=== PATIENT | male | born 1955 | race Caucasian/White ===

== ENCOUNTER 2016-11-27 00:46 | Emergency (ER) | payer BC ==
[~2016-11-27] VITALS: Ht 180.3 cm; Wt 102.5 kg
[~2016-11-27 00:46] MED LIST: AMLO5TAB4 PO; ASPI-1063 PO; CALC667C PO; CARV25TA55 PO; CAT.1 PO; GABA-531 PO; ISOS60TA4 PO; LIP80 PO; TICA90TA PO
[2016-11-27 00:55] VITALS: BP_SYST 132
[2016-11-27] MEDS ORDERED: MORPHINE 4 MG/ML INJ. SYRINGE IM ONE (04:00)
[2016-11-27 04:30] VITALS: BP_SYST 130
== END 2016-11-27 04:30 | disposition home or self-care (01) ==
LOC: SED 00:46
DX: S80.02XA Contusion of left knee, initial encounter (principal); I12.0 Hypertensive chronic kidney disease with stage 5 chronic kidney disease or end stage renal disease; N18.6 End stage renal disease; Z99.2 Dependence on renal dialysis; J44.9 Chronic obstructive pulmonary disease, unspecified; Z79.82 Long term (current) use of aspirin; Z79.899 Other long term (current) drug therapy; Z95.9 Presence of cardiac and vascular implant and graft, unspecified; V87.8XXA Person injured in other specified noncollision transport accidents involving motor vehicle (traffic), initial encounter; Y93.55 Activity, bike riding; Y92.89 Other specified places as the place of occurrence of the external cause; Y99.8 Other external cause status
CPT/HCPCS: 73564; 96372; 99284; J2270

== ENCOUNTER 2017-11-14 09:20 | Inpatient (IN) | payer BC ==
[2017-11-14] VITALS (7 sets, daily range): BP systolic 151–186
[~2017-11-14] VITALS: Ht 180.3 cm; Wt 105.7 kg
[2017-11-14] MEDS ORDERED: IPRATROPIUM/ALBUTEROL SULFATE 3 ML AMPUL.NEB INH ONE (09:45)
[2017-11-14 10:03] LABS: BASOPHILS % (AUTO) 0.5 % (0.0-2.0); EOSINOPHILS # (AUTO) 0.2 K/uL (0.0-0.4); EOSINOPHILS % (AUTO) 3.4 % (0.0-4.0); HEMATOCRIT 27.8 % (36-54); HEMOGLOBIN 9.3 g/dL (14.0-18.0); LYMPHOCYTES # (AUTO) 1.2 K/uL (1.0-5.5); MEAN CORPUSCULAR HEMOGLOBIN 33 pg (27-31); MEAN CORPUSCULAR HGB CONC 34 % (32-36); MEAN CORPUSCULAR VOLUME 98 fL (79.0-98.0); MONOCYTES # (AUTO) 0.6 K/uL (0.0-1.0); NEUTROPHILS # (AUTO) 4.8 K/uL (1.8-7.7); NEUTROPHILS % (AUTO) 69.1 % (40.0-70.0); PLATELET COUNT (AUTO) 133 K/uL (130-430); RED BLOOD CELL COUNT(AUTO) 2.85 MIL/uL (4.2-6.2); RED CELL DISTRIBUTION WIDTH 15.8 % (9.0-15.0); WHITE BLOOD COUNT (AUTO) 6.8 K/uL (4.8-10.8)
[2017-11-14 10:08] LABS: PROTHROMBIN TIME 10.4 SECS (9.5-12.5)
[2017-11-14 10:17] LABS: CALCIUM 8.9 mg/dL (8.4-11.0); CREATININE 6.8 mg/dL (0.55-1.30); POTASSIUM 4.2 mmol/L (3.5-5.1)
[2017-11-14 10:22] LABS: ALBUMIN 3.5 g/dL (3.4-4.8); TOTAL BILIRUBIN 1.2 mg/dL (0.0-1.0)
[2017-11-14] MEDS ORDERED: ASPIRIN 81 MG TAB.CHEW PO ONE (10:45)
[2017-11-14] MEDS ORDERED: methylPREDNISolone SOD SUCC/PF 62.5 MG/ML VIAL IVP ONE (10:45)
[2017-11-14] MEDS ORDERED: LEVOFLOXACIN 500 MG/D5W 100 ML IV ONE (10:45)
[2017-11-14] MEDS ORDERED: ONDANSETRON HCL 4 MG/2 ML VIAL IVP ONE (12:00)
[2017-11-14] MEDS ORDERED: IPRATROPIUM BROM 0.5 MG/2.5 ML VIAL.NEB (ATROVENT) INH PRN (13:30)
[2017-11-14] MEDS ORDERED: ALBUTEROL SULFATE 0.083% 2.5 MG/3 ML VIAL.NEB INH PRN (13:30)
[2017-11-14] MEDS: CARVEDILOL 25 MG TABLET (COREG) PO SCH (14:30)
[2017-11-14] MEDS ORDERED: CARVEDILOL 25 MG TABLET (COREG) PO ONE (14:45)
[2017-11-14] MEDS: cefTRIAXone 1 GM in D5W 50 ML IV SCH (15:22)
[2017-11-14] MEDS: AZITHROMYCIN 500 MG in NS 250 ML IV SCH (15:57)
[2017-11-14] MEDS: ALBUTEROL SULFATE 0.083% 2.5 MG/3 ML VIAL.NEB INH SCH (19:42)
[2017-11-14] MEDS: IPRATROPIUM BROM 0.5 MG/2.5 ML VIAL.NEB (ATROVENT) INH SCH (19:42)
[2017-11-14] MEDS: ATORVASTATIN 20 MG TABLET PO SCH (20:30)
[2017-11-14] MEDS ORDERED: cloNIDine HCL 0.1 MG TABLET ONE (20:31)
[2017-11-14] MEDS: cloNIDine HCL 0.1 MG TABLET PO PRN (20:31)
[2017-11-14] MEDS: ISOSORBIDE MONONITRATE 30 MG TAB.ER.24H PO SCH (20:31)
[2017-11-14] MEDS ORDERED: NON-FORMULARY MEDICATION (Ticagrelor (Brilinta) 90 MG) PO SCH (21:00)
[2017-11-14] MEDS: traZODone HCL 50 MG TABLET (DESYREL) PO PRN (21:35)
[2017-11-15 00:32] VITALS: BP_SYST 145
[2017-11-15] MEDS: ALBUTEROL SULFATE 0.083% 2.5 MG/3 ML VIAL.NEB INH SCH ×6 (00:55→19:46)
[2017-11-15] MEDS: IPRATROPIUM BROM 0.5 MG/2.5 ML VIAL.NEB (ATROVENT) INH SCH ×6 (00:55→19:46)
[2017-11-15 08:30] VITALS: BP_SYST 148
[2017-11-15 09:03] LABS: BASOPHILS % (AUTO) 0.4 % (0.0-2.0); EOSINOPHILS % (AUTO) 0.1 % (0.0-4.0); HEMATOCRIT 28.3 % (36-54); HEMOGLOBIN 9.5 g/dL (14.0-18.0); LYMPHOCYTES # (AUTO) 0.8 K/uL (1.0-5.5); LYMPHOCYTES % (AUTO) 7.7 % (20.5-51.5); MEAN CORPUSCULAR HEMOGLOBIN 33 pg (27-31); MEAN CORPUSCULAR HGB CONC 33 % (32-36); MEAN CORPUSCULAR VOLUME 99 fL (79.0-98.0); MONOCYTES # (AUTO) 0.4 K/uL (0.0-1.0); NEUTROPHILS % (AUTO) 87.8 % (40.0-70.0); PLATELET COUNT (AUTO) 145 K/uL (130-430); RED BLOOD CELL COUNT(AUTO) 2.88 MIL/uL (4.2-6.2); RED CELL DISTRIBUTION WIDTH 15.7 % (9.0-15.0); WHITE BLOOD COUNT (AUTO) 10.2 K/uL (4.8-10.8)
[2017-11-15] MEDS: GABAPENTIN 300 MG CAPSULE PO SCH (09:07)
[2017-11-15] MEDS: ISOSORBIDE MONONITRATE 30 MG TAB.ER.24H PO SCH ×2 (09:08→20:22)
[2017-11-15 09:29] LABS: CALCIUM 9.2 mg/dL (8.4-11.0); CREATININE 8.05 mg/dL (0.55-1.30); POTASSIUM 4.8 mmol/L (3.5-5.1)
[2017-11-15 09:34] LABS: ALBUMIN 3.6 g/dL (3.4-4.8); TOTAL BILIRUBIN 0.8 mg/dL (0.0-1.0)
[2017-11-15 12:50] VITALS: BP_SYST 167
[2017-11-15] MEDS: AZITHROMYCIN 500 MG in NS 250 ML IV SCH (13:45)
[2017-11-15] MEDS: cefTRIAXone 1 GM in D5W 50 ML IV SCH (13:45)
[2017-11-15] MEDS: CARVEDILOL 25 MG TABLET (COREG) PO SCH (13:46)
[2017-11-15] MEDS: cloNIDine HCL 0.1 MG TABLET PO SCH (13:47)
[2017-11-15 17:04] VITALS: BP_SYST 141
[2017-11-15] MEDS ORDERED: LORATADINE 10 MG TABLET PO PRN (18:15)
[2017-11-15 20:00] VITALS: BP_SYST 151
[2017-11-15] MEDS ORDERED: HYDROcodone/ACETAMIN 5-325 MG TAB (NORCO/ VICODIN) PO PRN (20:15)
[2017-11-15] MEDS: traZODone HCL 50 MG TABLET (DESYREL) PO PRN (20:22)
[2017-11-15] MEDS: ATORVASTATIN 20 MG TABLET PO SCH (20:22)
[2017-11-15 23:00] VITALS: BP_SYST 155
[2017-11-16] MEDS: IPRATROPIUM BROM 0.5 MG/2.5 ML VIAL.NEB (ATROVENT) INH SCH ×2 (04:43→07:01)
[2017-11-16] MEDS: ALBUTEROL SULFATE 0.083% 2.5 MG/3 ML VIAL.NEB INH SCH ×2 (04:43→07:01)
[2017-11-16 08:00] VITALS: BP_SYST 158
[2017-11-16] MEDS: GABAPENTIN 300 MG CAPSULE PO SCH (08:54)
[2017-11-16] MEDS: ISOSORBIDE MONONITRATE 30 MG TAB.ER.24H PO SCH (08:55)
[2017-11-16] MEDS: CARVEDILOL 25 MG TABLET (COREG) PO SCH (08:56)
[2017-11-16] MEDS: cloNIDine HCL 0.1 MG TABLET PO SCH (08:56)
[2017-11-16] MEDS ORDERED: AMOX-426 PO (11:31)
[2017-11-16] MEDS: cloNIDine HCL 0.1 MG TABLET PO PRN (12:39)
[2017-11-16 12:40] VITALS: BP_SYST 150
[2017-11-16 12:55] VITALS: BP_SYST 150
== END 2017-11-16 14:00 | disposition home or self-care (01) | DRG 291 ==
LOC: SED 09:20 → STU 11:57
PROVIDERS: ADMIT Internal Medicine Hospice and Palliative Medicine; ATTEND Internal Medicine Hospice and Palliative Medicine
PROC: 5A1D70Z Performance of Urinary Filtration, Intermittent, Less than 6 Hours Per Day (ICD-10-PCS; principal; 2017-11-15)
DX: I13.2 Hypertensive heart and chronic kidney disease with heart failure and with stage 5 chronic kidney disease, or end stage renal disease (principal); N18.6 End stage renal disease; J18.1 Lobar pneumonia, unspecified organism; I50.33 Acute on chronic diastolic (congestive) heart failure; J44.0 Chronic obstructive pulmonary disease with (acute) lower respiratory infection; J40 Bronchitis, not specified as acute or chronic; R74.8 Abnormal levels of other serum enzymes; F17.210 Nicotine dependence, cigarettes, uncomplicated; I25.10 Atherosclerotic heart disease of native coronary artery without angina pectoris; E11.22 Type 2 diabetes mellitus with diabetic chronic kidney disease; Z95.5 Presence of coronary angioplasty implant and graft; Z99.2 Dependence on renal dialysis; Z79.899 Other long term (current) drug therapy
CPT/HCPCS: 36415; 71045; 80053; 80061; 83605; 84484; 85025; 85610-TC; 85730-TC; 87040-TC; 87081; 93005; 93306; 94640; 94760; 96365; 96375; 99285; J0456; J0696; J1956; J2405; J2930; J7030; J7050; J7060; J7613; J7620

== ENCOUNTER 2017-11-16 17:38 | Inpatient (IN) | payer BC ==
[~2017-11-16] VITALS: Ht 180.3 cm; Wt 101.6 kg
[~2017-11-16 17:38] MED LIST changes: -AMLO5TAB4 PO; +AMOX-426 PO; -ASPI-1063 PO; -CALC667C PO
[2017-11-16 17:40] VITALS: BP_SYST 193
[2017-11-16] MEDS ORDERED: NACL 0.9% 1,000 ML IV ONE (17:58)
[2017-11-16] MEDS ORDERED: methylPREDNISolone SOD SUCC/PF 62.5 MG/ML VIAL IVP ONE (18:15)
[2017-11-16] MEDS ORDERED: FUROSEMIDE 40 MG/4 ML VIAL IVP ONE (18:15)
[2017-11-16] MEDS ORDERED: MAGNESIUM SULFATE 50 ML IV ONE (18:15)
[2017-11-16] MEDS ORDERED: IPRATROPIUM BROM 0.5 MG/2.5 ML VIAL.NEB (ATROVENT) IH ONE (18:15)
[2017-11-16] MEDS ORDERED: ALBUTEROL SULFATE 0.083% 2.5 MG/3 ML VIAL.NEB IH ONE (18:15)
[2017-11-16 18:27] LABS: EOSINOPHILS # (AUTO) 0.3 K/uL (0.0-0.4); LYMPHOCYTES # (AUTO) 0.7 K/uL (1.0-5.5); MEAN CORPUSCULAR HEMOGLOBIN 33 pg (27-31); MEAN CORPUSCULAR HGB CONC 34 % (32-36); MEAN CORPUSCULAR VOLUME 99 fL (79.0-98.0); MONOCYTES # (AUTO) 0.3 K/uL (0.0-1.0)
[2017-11-16 18:30] LABS: BASOPHILS # (AUTO) 0.1 K/uL (0.0-0.2); BASOPHILS % (AUTO) 1.2 % (0.0-2.0); EOSINOPHILS % (AUTO) 3.4 % (0.0-4.0); HEMATOCRIT 29.9 % (36-54); HEMOGLOBIN 10.1 g/dL (14.0-18.0); LYMPHOCYTES % (AUTO) 9.6 % (20.5-51.5); MONOCYTES % (AUTO) 4.1 % (1.7-9.3); NEUTROPHILS # (AUTO) 6.1 K/uL (1.8-7.7); NEUTROPHILS % (AUTO) 81.7 % (40.0-70.0); PLATELET COUNT (AUTO) 141 K/uL (130-430); RED BLOOD CELL COUNT(AUTO) 3.02 MIL/uL (4.2-6.2); RED CELL DISTRIBUTION WIDTH 16.2 % (9.0-15.0); WHITE BLOOD COUNT (AUTO) 7.5 K/uL (4.8-10.8)
[2017-11-16 18:41] LABS: CALCIUM 9.1 mg/dL (8.4-11.0); CREATININE 7.08 mg/dL (0.55-1.30); POTASSIUM 4.4 mmol/L (3.5-5.1)
[2017-11-16 18:42] LABS: PROTHROMBIN TIME 9.8 SECS (9.5-12.5)
[2017-11-16 18:45] LABS: ALBUMIN 3.9 g/dL (3.4-4.8); TOTAL BILIRUBIN 1.1 mg/dL (0.0-1.0)
[2017-11-16 19:57] VITALS: BP_SYST 181
[2017-11-16] MEDS ORDERED: ALBUTEROL SULFATE 0.083% 2.5 MG/3 ML VIAL.NEB INH ONE (21:22)
[2017-11-16] MEDS ORDERED: ALPRAZolam 0.25 MG TABLET ONE (21:24)
[2017-11-16] MEDS ORDERED: cloNIDine HCL 0.1 MG TABLET ONE (21:26)
[2017-11-16] MEDS ORDERED: LORazepam 2 MG/ML VIAL ONE (22:00)
[2017-11-16 22:04] VITALS: BP_SYST 181
[2017-11-16] MEDS ORDERED: ENOXAPARIN SODIUM 60 MG/0.6 ML SYRINGE ONE (22:17)
[2017-11-16] MEDS: methylPREDNISolone SOD SUCC/PF 62.5 MG/ML VIAL ONE ×2 (22:29→23:24)
[2017-11-16 22:30] VITALS: BP_SYST 174
[2017-11-16] MEDS ORDERED: LORazepam 2 MG/ML VIAL IVP SCH (22:30)
[2017-11-16] MEDS: ALBUTEROL SULFATE 0.083% 2.5 MG/3 ML VIAL.NEB INH PRN (22:41)
[2017-11-16 23:00] VITALS: BP_SYST 160
[2017-11-16] MEDS ORDERED: ENOXAPARIN SODIUM 60 MG/0.6 ML SYRINGE SUBCUT ONE (23:00)
[2017-11-17] VITALS (24 sets, daily range): BP systolic 146–188
[2017-11-17] MEDS ORDERED: cefTRIAXone 1 GM IVPB PREMIX 50 ML IV ONE (00:10)
[2017-11-17] MEDS ORDERED: AZITHROMYCIN 500 MG/VIAL (ZITHROMAX) IV ONE (00:11)
[2017-11-17] MEDS: cefTRIAXone 1 GM IVPB PREMIX 50 ML IV SCH (00:16)
[2017-11-17] MEDS: AZITHROMYCIN 500 MG in NS 250 ML IV SCH (01:12)
[2017-11-17] MEDS: cloNIDine HCL 0.1 MG TABLET PO PRN ×2 (01:30→06:40)
[2017-11-17] MEDS ORDERED: methylPREDNISolone SOD SUCC/PF 62.5 MG/ML VIAL IVP ONE (02:00)
[2017-11-17] MEDS: ALBUTEROL SULFATE 0.083% 2.5 MG/3 ML VIAL.NEB INH PRN ×2 (03:27→07:20)
[2017-11-17 05:59] LABS: BASOPHILS % (AUTO) 0.2 % (0.0-2.0); EOSINOPHILS % (AUTO) 0.2 % (0.0-4.0); HEMATOCRIT 28.2 % (36-54); HEMOGLOBIN 9.1 g/dL (14.0-18.0); LYMPHOCYTES # (AUTO) 0.3 K/uL (1.0-5.5); LYMPHOCYTES % (AUTO) 5.2 % (20.5-51.5); MEAN CORPUSCULAR HEMOGLOBIN 32 pg (27-31); MEAN CORPUSCULAR HGB CONC 32 % (32-36); MEAN CORPUSCULAR VOLUME 99 fL (79.0-98.0); MONOCYTES # (AUTO) 0.1 K/uL (0.0-1.0); MONOCYTES % (AUTO) 1.1 % (1.7-9.3); NEUTROPHILS # (AUTO) 5.8 K/uL (1.8-7.7); NEUTROPHILS % (AUTO) 93.3 % (40.0-70.0); PLATELET COUNT (AUTO) 120 K/uL (130-430); RED BLOOD CELL COUNT(AUTO) 2.86 MIL/uL (4.2-6.2); RED CELL DISTRIBUTION WIDTH 16.3 % (9.0-15.0); WHITE BLOOD COUNT (AUTO) 6.2 K/uL (4.8-10.8)
[2017-11-17 06:35] LABS: CALCIUM 8.2 mg/dL (8.4-11.0); POTASSIUM 5.7 mmol/L (3.5-5.1)
[2017-11-17] MEDS: PANTOPRAZOLE SODIUM 40 MG TAB PO SCH (06:38)
[2017-11-17 06:44] LABS: ALBUMIN 3.4 g/dL (3.4-4.8); TOTAL BILIRUBIN 0.9 mg/dL (0.0-1.0)
[2017-11-17 06:46] LABS: CREATININE 7.85 mg/dL (0.55-1.30)
[2017-11-17] MEDS: ISOSORBIDE MONONITRATE 30 MG TAB.ER.24H PO SCH ×2 (08:00→20:05)
[2017-11-17] MEDS: cloNIDine HCL 0.1 MG TABLET PO SCH (08:00)
[2017-11-17] MEDS ORDERED: CARVEDILOL 25 MG TABLET (COREG) PO SCH (09:00)
[2017-11-17] MEDS: methylPREDNISolone SOD SUCC/PF 62.5 MG/ML VIAL IVP SCH ×2 (09:42→17:04)
[2017-11-17] MEDS: ENALAPRILAT DIHYDRATE 1.25 MG/ML VIAL IVP PRN ×2 (10:41→13:57)
[2017-11-17] MEDS: IPRATROPIUM BROM 0.5 MG/2.5 ML VIAL.NEB (ATROVENT) INH SCH ×2 (13:41→19:43)
[2017-11-17] MEDS: ALBUTEROL SULFATE 0.083% 2.5 MG/3 ML VIAL.NEB INH SCH ×2 (13:41→19:43)
[2017-11-17] MEDS: CARVEDILOL 25 MG TABLET (COREG) PO SCH (20:04)
[2017-11-18] VITALS (16 sets, daily range): BP systolic 141–205
[2017-11-18] MEDS: cefTRIAXone 1 GM IVPB PREMIX 50 ML IV SCH ×2 (00:07→23:15)
[2017-11-18] MEDS: ALBUTEROL SULFATE 0.083% 2.5 MG/3 ML VIAL.NEB INH SCH ×4 (00:48→20:33)
[2017-11-18] MEDS: IPRATROPIUM BROM 0.5 MG/2.5 ML VIAL.NEB (ATROVENT) INH SCH ×4 (00:49→20:34)
[2017-11-18] MEDS: AZITHROMYCIN 500 MG in NS 250 ML IV SCH (01:00)
[2017-11-18] MEDS: methylPREDNISolone SOD SUCC/PF 62.5 MG/ML VIAL IVP SCH ×3 (01:03→17:55)
[2017-11-18] MEDS: cloNIDine HCL 0.1 MG TABLET PO PRN ×3 (01:03→13:42)
[2017-11-18] MEDS: PANTOPRAZOLE SODIUM 40 MG TAB PO SCH (06:11)
[2017-11-18 06:31] LABS: BASOPHILS % (AUTO) 0.1 % (0.0-2.0); HEMATOCRIT 26.8 % (36-54); HEMOGLOBIN 8.8 g/dL (14.0-18.0); LYMPHOCYTES # (AUTO) 0.4 K/uL (1.0-5.5); MEAN CORPUSCULAR HEMOGLOBIN 32 pg (27-31); MEAN CORPUSCULAR HGB CONC 33 % (32-36); MEAN CORPUSCULAR VOLUME 98 fL (79.0-98.0); MONOCYTES # (AUTO) 0.3 K/uL (0.0-1.0); MONOCYTES % (AUTO) 2.9 % (1.7-9.3); PLATELET COUNT (AUTO) 128 K/uL (130-430); RED BLOOD CELL COUNT(AUTO) 2.73 MIL/uL (4.2-6.2); RED CELL DISTRIBUTION WIDTH 16.3 % (9.0-15.0); WHITE BLOOD COUNT (AUTO) 10.7 K/uL (4.8-10.8)
[2017-11-18 06:54] LABS: CALCIUM 8.3 mg/dL (8.4-11.0); CREATININE 6.76 mg/dL (0.55-1.30); POTASSIUM 4.7 mmol/L (3.5-5.1)
[2017-11-18] MEDS: hydrALAZINE HCL 25 MG TABLET PO SCH ×2 (08:47→21:02)
[2017-11-18] MEDS: CARVEDILOL 25 MG TABLET (COREG) PO SCH ×2 (08:47→21:04)
[2017-11-18] MEDS: cloNIDine HCL 0.1 MG TABLET PO SCH (08:48)
[2017-11-18] MEDS: ISOSORBIDE MONONITRATE 30 MG TAB.ER.24H PO SCH ×2 (08:48→21:03)
[2017-11-18] MEDS ORDERED: BRILINTA 90 MG PO ONE (09:00)
[2017-11-18] MEDS: BRILINTA 90 MG PO SCH (17:42)
[2017-11-18] MEDS: ENALAPRILAT DIHYDRATE 1.25 MG/ML VIAL IVP PRN (17:56)
[2017-11-18] MEDS: DOCUSATE SODIUM 100 MG CAPSULE PO SCH (21:02)
[2017-11-18] MEDS: AMIODARONE HCL 200 MG TABLET PO SCH (21:04)
[2017-11-18] MEDS: MORPHINE 2 MG/ML INJ. SYRINGE IVP PRN (21:08)
[2017-11-19] VITALS (8 sets, daily range): BP systolic 140–188
[2017-11-19] MEDS: cloNIDine HCL 0.1 MG TABLET PO PRN ×2 (00:12→06:14)
[2017-11-19] MEDS: methylPREDNISolone SOD SUCC/PF 62.5 MG/ML VIAL IVP SCH ×3 (01:24→18:33)
[2017-11-19] MEDS: AZITHROMYCIN 500 MG in NS 250 ML IV SCH (01:24)
[2017-11-19] MEDS: ALPRAZolam 0.25 MG TABLET PO PRN (01:39)
[2017-11-19] MEDS: ALBUTEROL SULFATE 0.083% 2.5 MG/3 ML VIAL.NEB INH SCH ×4 (01:58→20:21)
[2017-11-19] MEDS: IPRATROPIUM BROM 0.5 MG/2.5 ML VIAL.NEB (ATROVENT) INH SCH ×4 (01:58→20:21)
[2017-11-19] MEDS: PANTOPRAZOLE SODIUM 40 MG TAB PO SCH (06:13)
[2017-11-19] MEDS: MORPHINE 2 MG/ML INJ. SYRINGE IVP PRN ×2 (06:15→21:58)
[2017-11-19 07:01] LABS: BASOPHILS % (AUTO) 0.2 % (0.0-2.0); EOSINOPHILS % (AUTO) 0.2 % (0.0-4.0); HEMATOCRIT 27.1 % (36-54); HEMOGLOBIN 9.1 g/dL (14.0-18.0); LYMPHOCYTES # (AUTO) 0.4 K/uL (1.0-5.5); MEAN CORPUSCULAR HEMOGLOBIN 33 pg (27-31); MEAN CORPUSCULAR HGB CONC 34 % (32-36); MEAN CORPUSCULAR VOLUME 99 fL (79.0-98.0); MONOCYTES # (AUTO) 0.4 K/uL (0.0-1.0); MONOCYTES % (AUTO) 2.9 % (1.7-9.3); NEUTROPHILS # (AUTO) 12.2 K/uL (1.8-7.7); NEUTROPHILS % (AUTO) 93.7 % (40.0-70.0); PLATELET COUNT (AUTO) 142 K/uL (130-430); RED BLOOD CELL COUNT(AUTO) 2.74 MIL/uL (4.2-6.2); RED CELL DISTRIBUTION WIDTH 16.9 % (9.0-15.0)
[2017-11-19 07:33] LABS: ALBUMIN 3.2 g/dL (3.4-4.8); CALCIUM 8.1 mg/dL (8.4-11.0); POTASSIUM 4.7 mmol/L (3.5-5.1); TOTAL BILIRUBIN 0.6 mg/dL (0.0-1.0)
[2017-11-19 07:42] LABS: CREATININE 7.95 mg/dL (0.55-1.30)
[2017-11-19] MEDS: CARVEDILOL 25 MG TABLET (COREG) PO SCH ×2 (08:22→20:45)
[2017-11-19] MEDS: DOCUSATE SODIUM 100 MG CAPSULE PO SCH ×2 (08:23→20:27)
[2017-11-19] MEDS: cloNIDine HCL 0.1 MG TABLET PO SCH (08:23)
[2017-11-19] MEDS: AMIODARONE HCL 200 MG TABLET PO SCH ×2 (08:24→20:46)
[2017-11-19] MEDS: hydrALAZINE HCL 25 MG TABLET PO SCH ×2 (08:24→20:45)
[2017-11-19] MEDS: ISOSORBIDE MONONITRATE 30 MG TAB.ER.24H PO SCH ×2 (08:25→20:27)
[2017-11-19] MEDS: BRILINTA 90 MG PO SCH ×2 (08:27→20:35)
[2017-11-19] MEDS ORDERED: guaiFENesin ER 600 MG TAB PO ONE (10:15)
[2017-11-19] MEDS: guaiFENesin ER 600 MG TAB PO SCH (20:27)
[2017-11-19] MEDS: ENALAPRILAT DIHYDRATE 1.25 MG/ML VIAL IVP PRN (22:04)
[2017-11-20 00:39] VITALS: BP_SYST 161
[2017-11-20] MEDS: cefTRIAXone 1 GM IVPB PREMIX 50 ML IV SCH (00:52)
[2017-11-20] MEDS: ALBUTEROL SULFATE 0.083% 2.5 MG/3 ML VIAL.NEB INH SCH ×4 (01:01→19:56)
[2017-11-20] MEDS: IPRATROPIUM BROM 0.5 MG/2.5 ML VIAL.NEB (ATROVENT) INH SCH ×4 (01:01→19:56)
[2017-11-20] MEDS: methylPREDNISolone SOD SUCC/PF 62.5 MG/ML VIAL IVP SCH (02:50)
[2017-11-20] MEDS: ALPRAZolam 0.25 MG TABLET PO PRN ×2 (02:51→12:03)
[2017-11-20] MEDS: cloNIDine HCL 0.1 MG TABLET PO PRN ×2 (02:53→16:52)
[2017-11-20 03:00] VITALS: BP_SYST 177
[2017-11-20] MEDS: PANTOPRAZOLE SODIUM 40 MG TAB PO SCH (06:11)
[2017-11-20 06:55] LABS: BASOPHILS % (AUTO) 0.1 % (0.0-2.0); EOSINOPHILS % (AUTO) 0.1 % (0.0-4.0); HEMATOCRIT 27.5 % (36-54); HEMOGLOBIN 9.2 g/dL (14.0-18.0); LYMPHOCYTES # (AUTO) 0.3 K/uL (1.0-5.5); LYMPHOCYTES % (AUTO) 2.7 % (20.5-51.5); MEAN CORPUSCULAR HEMOGLOBIN 33 pg (27-31); MEAN CORPUSCULAR HGB CONC 33 % (32-36); MEAN CORPUSCULAR VOLUME 99 fL (79.0-98.0); MONOCYTES # (AUTO) 0.4 K/uL (0.0-1.0); MONOCYTES % (AUTO) 3.5 % (1.7-9.3); NEUTROPHILS % (AUTO) 93.6 % (40.0-70.0); PLATELET COUNT (AUTO) 127 K/uL (130-430); RED BLOOD CELL COUNT(AUTO) 2.78 MIL/uL (4.2-6.2); WHITE BLOOD COUNT (AUTO) 10.7 K/uL (4.8-10.8)
[2017-11-20 07:27] LABS: ALBUMIN 3.1 g/dL (3.4-4.8); CREATININE 6.58 mg/dL (0.55-1.30); POTASSIUM 4.4 mmol/L (3.5-5.1); TOTAL BILIRUBIN 0.8 mg/dL (0.0-1.0)
[2017-11-20 08:30] VITALS: BP_SYST 173
[2017-11-20] MEDS: ISOSORBIDE MONONITRATE 30 MG TAB.ER.24H PO SCH ×2 (08:33→20:27)
[2017-11-20] MEDS: DOCUSATE SODIUM 100 MG CAPSULE PO SCH ×2 (08:33→20:26)
[2017-11-20] MEDS: BRILINTA 90 MG PO SCH ×2 (08:33→20:27)
[2017-11-20] MEDS: guaiFENesin ER 600 MG TAB PO SCH ×2 (08:34→20:25)
[2017-11-20] MEDS: hydrALAZINE HCL 25 MG TABLET PO SCH ×2 (08:34→20:26)
[2017-11-20] MEDS: CARVEDILOL 25 MG TABLET (COREG) PO SCH ×2 (08:35→20:26)
[2017-11-20] MEDS: AMIODARONE HCL 200 MG TABLET PO SCH ×2 (08:35→20:26)
[2017-11-20] MEDS: cloNIDine HCL 0.1 MG TABLET PO SCH (08:36)
[2017-11-20 12:31] VITALS: BP_SYST 163
[2017-11-20 16:10] VITALS: BP_SYST 166
[2017-11-20] MEDS: MORPHINE 2 MG/ML INJ. SYRINGE IVP PRN ×2 (16:54→22:39)
[2017-11-20] MEDS: methylPREDNISolone SOD SUCC 40 MG/ML VIAL IVP SCH (20:25)
[2017-11-20 20:30] VITALS: BP_SYST 162
[2017-11-20] MEDS: ENALAPRILAT DIHYDRATE 1.25 MG/ML VIAL IVP PRN (22:33)
[2017-11-21] VITALS (7 sets, daily range): BP systolic 145–174
[2017-11-21] MEDS: cefTRIAXone 1 GM IVPB PREMIX 50 ML IV SCH (00:21)
[2017-11-21] MEDS: cloNIDine HCL 0.1 MG TABLET PO PRN ×3 (00:30→22:25)
[2017-11-21] MEDS: ALBUTEROL SULFATE 0.083% 2.5 MG/3 ML VIAL.NEB INH SCH ×3 (00:52→13:09)
[2017-11-21] MEDS: IPRATROPIUM BROM 0.5 MG/2.5 ML VIAL.NEB (ATROVENT) INH SCH ×3 (00:52→13:09)
[2017-11-21] MEDS: PANTOPRAZOLE SODIUM 40 MG TAB PO SCH (06:11)
[2017-11-21 06:57] LABS: CALCIUM 7.8 mg/dL (8.4-11.0); HEMATOCRIT 27.4 % (36-54); HEMOGLOBIN 9.1 g/dL (14.0-18.0); MEAN CORPUSCULAR HEMOGLOBIN 33 pg (27-31); MEAN CORPUSCULAR HGB CONC 33 % (32-36); MEAN CORPUSCULAR VOLUME 100 fL (79.0-98.0); PLATELET COUNT (AUTO) 132 K/uL (130-430); POTASSIUM 5.2 mmol/L (3.5-5.1); RED BLOOD CELL COUNT(AUTO) 2.74 MIL/uL (4.2-6.2); RED CELL DISTRIBUTION WIDTH 17.5 % (9.0-15.0); TOTAL BILIRUBIN 0.8 mg/dL (0.0-1.0); WHITE BLOOD COUNT (AUTO) 10.8 K/uL (4.8-10.8)
[2017-11-21 07:02] LABS: CREATININE 8.27 mg/dL (0.55-1.30)
[2017-11-21] MEDS: methylPREDNISolone SOD SUCC 40 MG/ML VIAL IVP SCH (08:13)
[2017-11-21] MEDS: BRILINTA 90 MG PO SCH ×2 (08:14→20:24)
[2017-11-21] MEDS: DOCUSATE SODIUM 100 MG CAPSULE PO SCH ×2 (08:15→20:22)
[2017-11-21] MEDS: hydrALAZINE HCL 25 MG TABLET PO SCH ×2 (08:15→20:22)
[2017-11-21] MEDS: ISOSORBIDE MONONITRATE 30 MG TAB.ER.24H PO SCH ×2 (08:15→20:23)
[2017-11-21] MEDS: cloNIDine HCL 0.1 MG TABLET PO SCH (08:16)
[2017-11-21] MEDS: guaiFENesin ER 600 MG TAB PO SCH ×2 (08:16→20:22)
[2017-11-21] MEDS: CARVEDILOL 25 MG TABLET (COREG) PO SCH ×2 (08:17→20:23)
[2017-11-21] MEDS: AMIODARONE HCL 200 MG TABLET PO SCH ×2 (08:17→20:23)
[2017-11-21] MEDS: MORPHINE 2 MG/ML INJ. SYRINGE IVP PRN ×2 (10:49→20:28)
[2017-11-21 12:11] LABS: BAND % (MANUAL) 3 % (0-6)
[2017-11-21 12:12] LABS: ATYPICAL LYMPHOCYTES % 0 % (0-0); BASOPHILS % (MANUAL) 0 % (0-2); EOSINOPHILS % (MANUAL) 0 % (0-7); LYMPHOCYTES % (MANUAL) 9 % (20-46); MONOCYTES % (MANUAL) 1 % (0-11)
[2017-11-21] MEDS: ALPRAZolam 0.25 MG TABLET PO PRN (13:11)
[2017-11-21] MEDS: PREDNISONE 20 MG TABLET PO SCH (20:27)
[2017-11-22] VITALS (7 sets, daily range): BP systolic 130–192
[2017-11-22] MEDS: cefTRIAXone 1 GM IVPB PREMIX 50 ML IV SCH (00:20)
[2017-11-22] MEDS: MORPHINE 2 MG/ML INJ. SYRINGE IVP PRN (04:51)
[2017-11-22] MEDS: PANTOPRAZOLE SODIUM 40 MG TAB PO SCH (06:06)
[2017-11-22] MEDS: ALBUTEROL SULFATE 0.083% 2.5 MG/3 ML VIAL.NEB INH SCH ×2 (06:56→13:00)
[2017-11-22] MEDS: IPRATROPIUM BROM 0.5 MG/2.5 ML VIAL.NEB (ATROVENT) INH SCH ×2 (06:57→13:00)
[2017-11-22] MEDS: ALPRAZolam 0.25 MG TABLET PO PRN ×2 (11:09→20:46)
[2017-11-22] MEDS: ISOSORBIDE MONONITRATE 30 MG TAB.ER.24H PO SCH ×2 (16:18→20:22)
[2017-11-22] MEDS: PREDNISONE 20 MG TABLET PO SCH ×2 (16:18→20:22)
[2017-11-22] MEDS: DOCUSATE SODIUM 100 MG CAPSULE PO SCH ×2 (16:18→20:23)
[2017-11-22] MEDS: guaiFENesin ER 600 MG TAB PO SCH ×2 (16:18→20:21)
[2017-11-22] MEDS: CARVEDILOL 25 MG TABLET (COREG) PO SCH ×2 (16:19→20:22)
[2017-11-22] MEDS: cloNIDine HCL 0.1 MG TABLET PO SCH (16:19)
[2017-11-22] MEDS: BRILINTA 90 MG PO SCH ×2 (16:21→20:24)
[2017-11-22] MEDS: hydrALAZINE HCL 25 MG TABLET PO SCH ×2 (16:21→20:22)
[2017-11-22] MEDS ORDERED: AMIODARONE HCL 200 MG TABLET PO SCH (21:00)
[2017-11-22] MEDS: ENALAPRILAT DIHYDRATE 1.25 MG/ML VIAL IVP PRN (21:24)
== END 2017-11-22 22:26 | disposition home or self-care (01) | DRG 291 ==
LOC: SED 17:38 → STU 19:19 → SIC 21:35 → STU 11-18 11:55
PROVIDERS: ADMIT Internal Medicine Hospice and Palliative Medicine; ATTEND Internal Medicine Hospice and Palliative Medicine
PROC: 5A09357 Assistance with Respiratory Ventilation, Less than 24 Consecutive Hours, Continuous Positive Airway Pressure (ICD-10-PCS; principal; 2017-11-16)
PROC: 5A1D70Z Performance of Urinary Filtration, Intermittent, Less than 6 Hours Per Day (ICD-10-PCS; 2017-11-16)
PROC: 5A1D70Z Performance of Urinary Filtration, Intermittent, Less than 6 Hours Per Day (ICD-10-PCS; 2017-11-17)
PROC: 5A1D70Z Performance of Urinary Filtration, Intermittent, Less than 6 Hours Per Day (ICD-10-PCS; 2017-11-19)
PROC: 5A1D70Z Performance of Urinary Filtration, Intermittent, Less than 6 Hours Per Day (ICD-10-PCS; 2017-11-22)
DX: I13.2 Hypertensive heart and chronic kidney disease with heart failure and with stage 5 chronic kidney disease, or end stage renal disease (principal); I50.33 Acute on chronic diastolic (congestive) heart failure; J96.01 Acute respiratory failure with hypoxia; N18.6 End stage renal disease; J18.9 Pneumonia, unspecified organism; E87.2 Acidosis; J44.1 Chronic obstructive pulmonary disease with (acute) exacerbation; I47.2 Ventricular tachycardia; J44.0 Chronic obstructive pulmonary disease with (acute) lower respiratory infection; I24.8 Other forms of acute ischemic heart disease; G47.33 Obstructive sleep apnea (adult) (pediatric); F41.9 Anxiety disorder, unspecified; F17.210 Nicotine dependence, cigarettes, uncomplicated; I08.1 Rheumatic disorders of both mitral and tricuspid valves; E78.5 Hyperlipidemia, unspecified; I25.10 Atherosclerotic heart disease of native coronary artery without angina pectoris; E66.9 Obesity, unspecified; Z68.31 Body mass index [BMI] 31.0-31.9, adult; Z95.5 Presence of coronary angioplasty implant and graft; Z99.2 Dependence on renal dialysis; Z79.899 Other long term (current) drug therapy
CPT/HCPCS: 36415; 36600; 71045; 71250-TC; 80048; 80053; 82550-TC; 82803-TC; 82962; 83605; 83690-TC; 83880; 84484; 85007; 85025; 85027; 85379; 85610-TC; 85730-TC; 87040-TC; 87081; 90935; 90937; 93005; 94640; 94660; 94760; 96365; 96375; 99285; J0456; J0696; J1030; J1650; J1940; J2060; J2270; J2930; J3475; J7030; J7050; J7512; J7613

== ENCOUNTER 2017-12-03 14:49 | Inpatient (IN) | payer BC ==
[~2017-12-03] VITALS: Ht 180.3 cm; Wt 100.7 kg
[~2017-12-03 14:49] MED LIST changes: -AMOX-426 PO
[2017-12-03 14:50] VITALS: BP_SYST 193
[2017-12-03] MEDS ORDERED: FLUT1DIS3 INH (16:23)
[2017-12-03] MEDS ORDERED: AMIO200T2 PO (16:23)
[2017-12-03] MEDS ORDERED: FERR-57 PO (16:23)
[2017-12-03] MEDS ORDERED: ALPR0.2583 PO (16:23)
[2017-12-03] MEDS ORDERED: ASPI81TA2 PO (16:23)
[2017-12-03] MEDS ORDERED: CALC667T5 PO (16:23)
[2017-12-03] MEDS ORDERED: TRAZ-126 PO (16:23)
[2017-12-03] MEDS ORDERED: TICA90TA PO (16:23)
[2017-12-03] MEDS ORDERED: AMLO5TAB4 PO (16:23)
[2017-12-03] MEDS ORDERED: CILO100T PO (16:23)
[2017-12-03] MEDS ORDERED: ALBU8.5H8 INH (16:23)
[2017-12-03] MEDS ORDERED: FLUT16SP16 NS (16:23)
[2017-12-03] MEDS ORDERED: HYDR-1189 PO (16:23)
[2017-12-03] MEDS ORDERED: SODI1POW18 PO (16:23)
[2017-12-03] MEDS ORDERED: LOSA50TA3 PO (16:23)
[2017-12-03] MEDS ORDERED: [UNRECOGNIZED DRUG - CODE] MC (16:23)
[2017-12-03] MEDS ORDERED: cloNIDine HCL 0.1 MG TABLET PO ONE (16:30)
[2017-12-03 17:09] LABS: PROTHROMBIN TIME 10.5 SECS (9.5-12.5)
[2017-12-03 17:11] LABS: BASOPHILS % (AUTO) 0.1 % (0.0-2.0); EOSINOPHILS # (AUTO) 0.1 K/uL (0.0-0.4); EOSINOPHILS % (AUTO) 1.7 % (0.0-4.0); HEMATOCRIT 30.8 % (36-54); HEMOGLOBIN 10.1 g/dL (14.0-18.0); LYMPHOCYTES # (AUTO) 0.6 K/uL (1.0-5.5); LYMPHOCYTES % (AUTO) 8.1 % (20.5-51.5); MEAN CORPUSCULAR HEMOGLOBIN 33 pg (27-31); MEAN CORPUSCULAR HGB CONC 33 % (32-36); MEAN CORPUSCULAR VOLUME 99 fL (79.0-98.0); MONOCYTES # (AUTO) 0.2 K/uL (0.0-1.0); MONOCYTES % (AUTO) 2.4 % (1.7-9.3); NEUTROPHILS # (AUTO) 6.5 K/uL (1.8-7.7); NEUTROPHILS % (AUTO) 87.7 % (40.0-70.0); PLATELET COUNT (AUTO) 120 K/uL (130-430); RED CELL DISTRIBUTION WIDTH 17.6 % (9.0-15.0); WHITE BLOOD COUNT (AUTO) 7.4 K/uL (4.8-10.8)
[2017-12-03 17:15] LABS: CALCIUM 8.3 mg/dL (8.4-11.0); CHLORIDE 104 mmol/L (98-107); CREATININE 2.96 mg/dL (0.55-1.30); GLUCOSE 168 mg/dL (70-99); POTASSIUM 3.9 mmol/L (3.5-5.1); SODIUM SERUM 144 mmol/L (136-145); UREA NITROGEN, BLOOD 14 mg/dL (8-21)
[2017-12-03 17:20] LABS: ANION GAP < 3 (5-15); GFR AFRICAN AMERICAN 28 mL/min (>90)
[2017-12-03 17:24] LABS: ALANINE AMINOTRANSFERASE 23 U/L (12-78); ASPARTATE AMINOTRANSFERASE 12 U/L (10-37); TOTAL BILIRUBIN 1.8 mg/dL (0.0-1.0)
[2017-12-03 17:25] LABS: ALBUMIN 3.1 g/dL (3.4-4.8)
[2017-12-03] MEDS ORDERED: NITROGLYCERIN 0.4 MG TAB.SUBL SL ONE (17:45)
[2017-12-03] MEDS ORDERED: ALBUTEROL SULFATE 0.083% 2.5 MG/3 ML VIAL.NEB IH ONE (17:45)
[2017-12-03] MEDS ORDERED: IPRATROPIUM BROM 0.5 MG/2.5 ML VIAL.NEB (ATROVENT) IH ONE (17:45)
[2017-12-03] MEDS ORDERED: BUMETANIDE 1 MG TABLET PO ONE (19:00)
[2017-12-03] MEDS ORDERED: ALPRAZolam 0.25 MG TABLET PO ONE (19:00)
[2017-12-03] MEDS ORDERED: ALBUTEROL SULFATE 0.083% 2.5 MG/3 ML VIAL.NEB INH PRN (19:30)
[2017-12-03 20:00] VITALS: BP_SYST 161
[2017-12-03 20:05] VITALS: BP_SYST 161
[2017-12-03 20:10] VITALS: BP_SYST 164
[2017-12-03] MEDS: FUROSEMIDE 40 MG/4 ML VIAL IVP SCH (20:58)
[2017-12-03 23:55] VITALS: BP_SYST 160
[2017-12-04] MEDS: HYDROcodone/ACETAMIN 5-325 MG TAB (NORCO/ VICODIN) PO PRN ×2 (03:12→15:27)
[2017-12-04] MEDS: ALPRAZolam 0.25 MG TABLET PO PRN ×2 (03:12→20:46)
[2017-12-04] MEDS ORDERED: cloNIDine HCL 0.1 MG TABLET PO PRN (05:30)
[2017-12-04 07:07] LABS: CREATININE 4.1 mg/dL (0.55-1.30); POTASSIUM 3.8 mmol/L (3.5-5.1)
[2017-12-04 07:13] LABS: HEMOGLOBIN 9.6 g/dL (14.0-18.0)
[2017-12-04 07:53] LABS: HEMATOCRIT 29.4 % (36-54); MEAN CORPUSCULAR HEMOGLOBIN 33 pg (27-31); MEAN CORPUSCULAR HGB CONC 33 % (32-36); MEAN CORPUSCULAR VOLUME 101 fL (79.0-98.0); PLATELET COUNT (AUTO) 97 K/uL (130-430); RED BLOOD CELL COUNT(AUTO) 2.91 MIL/uL (4.2-6.2); RED CELL DISTRIBUTION WIDTH 17.3 % (9.0-15.0); WHITE BLOOD COUNT (AUTO) 6.8 K/uL (4.8-10.8)
[2017-12-04] MEDS: FLUTICASONE PROPIONATE 50 mCg/SPRAY 16 GM NS SCH ×2 (08:16→20:40)
[2017-12-04] MEDS: CALCIUM ACETATE 667 MG CAP PO SCH ×3 (08:17→20:42)
[2017-12-04] MEDS: FERROUS SULFATE 325 MG TABLET.DR PO SCH ×2 (08:18→20:41)
[2017-12-04] MEDS: ASPIRIN 81 MG TAB.CHEW PO SCH (08:18)
[2017-12-04] MEDS: ISOSORBIDE MONONITRATE 30 MG TAB.ER.24H PO SCH ×2 (08:19→20:42)
[2017-12-04 08:20] VITALS: BP_SYST 208
[2017-12-04] MEDS: AMIODARONE HCL 200 MG TABLET PO SCH (08:20)
[2017-12-04] MEDS: LOSARTAN POTASSIUM 50 MG TABLET (COZAAR) PO SCH (08:20)
[2017-12-04] MEDS: FUROSEMIDE 40 MG/4 ML VIAL IVP SCH ×2 (08:21→20:40)
[2017-12-04] MEDS: CARVEDILOL 25 MG TABLET (COREG) PO SCH ×2 (08:21→20:41)
[2017-12-04] MEDS ORDERED: CILOSTAZOL 50 MG PO SCH (09:00)
[2017-12-04] MEDS ORDERED: AMIODARONE HCL 200 MG PO SCH (09:00)
[2017-12-04] MEDS ORDERED: CILOSTAZOL 50 MG TABLET (PLETAL) PO SCH (09:00)
[2017-12-04] MEDS ORDERED: NON-FORMULARY MEDICATION (Ticagrelor (Brilinta) 90 MG) PO SCH (09:00)
[2017-12-04] MEDS ORDERED: SODIUM BICARBONATE 650 MG TABLET PO SCH (09:00)
[2017-12-04] MEDS ORDERED: amLODIPine BESYLATE 5 MG TABLET PO SCH ×2 (09:00)
[2017-12-04 09:20] VITALS: BP_SYST 159
[2017-12-04] MEDS ORDERED: hydrALAZINE HCL 25 MG TABLET PO ONE (11:00)
[2017-12-04 11:21] LABS: BAND % (MANUAL) 2 % (0-6)
[2017-12-04 11:22] LABS: BASOPHILS % (MANUAL) 0 % (0-2); EOSINOPHILS % (MANUAL) 1 % (0-7); LYMPHOCYTES % (MANUAL) 7 % (20-46); MONOCYTES % (MANUAL) 5 % (0-11)
[2017-12-04 12:00] VITALS: BP_SYST 142
[2017-12-04] MEDS ORDERED: IPRATROPIUM BROM 0.5 MG/2.5 ML VIAL.NEB (ATROVENT) INH PRN (12:30)
[2017-12-04] MEDS ORDERED: ALBUTEROL SULFATE 0.083% 2.5 MG/3 ML VIAL.NEB INH PRN (12:30)
[2017-12-04] MEDS: ALBUTEROL SULFATE 0.083% 2.5 MG/3 ML VIAL.NEB INH SCH ×3 (15:35→23:00)
[2017-12-04] MEDS: IPRATROPIUM BROM 0.5 MG/2.5 ML VIAL.NEB (ATROVENT) INH SCH ×3 (15:36→23:00)
[2017-12-04 16:00] VITALS: BP_SYST 146
[2017-12-04 20:00] VITALS: BP_SYST 180
[2017-12-04] MEDS: traZODone HCL 50 MG TABLET (DESYREL) PO SCH (20:41)
[2017-12-04] MEDS: ATORVASTATIN 20 MG TABLET PO SCH (20:41)
[2017-12-04] MEDS: hydrALAZINE HCL 25 MG TABLET PO SCH (20:42)
[2017-12-05] VITALS: BP_SYST 164
[2017-12-05] MEDS: ALBUTEROL SULFATE 0.083% 2.5 MG/3 ML VIAL.NEB INH SCH ×6 (02:11→22:56)
[2017-12-05] MEDS: IPRATROPIUM BROM 0.5 MG/2.5 ML VIAL.NEB (ATROVENT) INH SCH ×6 (02:11→22:56)
[2017-12-05 08:00] VITALS: BP_SYST 150
[2017-12-05] MEDS: LOSARTAN POTASSIUM 50 MG TABLET (COZAAR) PO SCH (09:42)
[2017-12-05] MEDS: ISOSORBIDE MONONITRATE 30 MG TAB.ER.24H PO SCH ×2 (09:42→20:56)
[2017-12-05] MEDS: FERROUS SULFATE 325 MG TABLET.DR PO SCH ×2 (09:42→20:54)
[2017-12-05] MEDS: hydrALAZINE HCL 25 MG TABLET PO SCH ×2 (09:43→20:56)
[2017-12-05] MEDS: ASPIRIN 81 MG TAB.CHEW PO SCH (09:43)
[2017-12-05] MEDS: FLUTICASONE PROPIONATE 50 mCg/SPRAY 16 GM NS SCH ×2 (09:44→20:52)
[2017-12-05] MEDS: AMIODARONE HCL 200 MG TABLET PO SCH (09:44)
[2017-12-05] MEDS: CALCIUM ACETATE 667 MG CAP PO SCH ×4 (09:45→20:56)
[2017-12-05] MEDS: FUROSEMIDE 40 MG/4 ML VIAL IVP SCH ×2 (09:45→20:54)
[2017-12-05] MEDS: CARVEDILOL 25 MG TABLET (COREG) PO SCH ×2 (09:49→20:55)
[2017-12-05 11:20] VITALS: BP_SYST 156
[2017-12-05 15:20] VITALS: BP_SYST 114
[2017-12-05] MEDS: ATORVASTATIN 20 MG TABLET PO SCH (20:55)
[2017-12-05] MEDS: traZODone HCL 50 MG TABLET (DESYREL) PO SCH (20:56)
[2017-12-05] MEDS ORDERED: TICA90TA PO (21:37)
[2017-12-05] MEDS: HYDROcodone/ACETAMIN 5-325 MG TAB (NORCO/ VICODIN) PO PRN (21:59)
[2017-12-05] MEDS: ALPRAZolam 0.25 MG TABLET PO PRN (21:59)
[2017-12-05 22:00] VITALS: BP_SYST 151
[2017-12-06] VITALS (7 sets, daily range): BP systolic 131–169
[2017-12-06] MEDS: ALBUTEROL SULFATE 0.083% 2.5 MG/3 ML VIAL.NEB INH SCH ×5 (03:00→19:50)
[2017-12-06] MEDS: IPRATROPIUM BROM 0.5 MG/2.5 ML VIAL.NEB (ATROVENT) INH SCH ×5 (03:00→19:50)
[2017-12-06 06:43] LABS: EOSINOPHILS # (AUTO) 0.2 K/uL (0.0-0.4); EOSINOPHILS % (AUTO) 4.8 % (0.0-4.0); HEMOGLOBIN 9.1 g/dL (14.0-18.0); LYMPHOCYTES % (AUTO) 18.5 % (20.5-51.5); MONOCYTES # (AUTO) 0.3 K/uL (0.0-1.0); WHITE BLOOD COUNT (AUTO) 4.6 K/uL (4.8-10.8)
[2017-12-06 06:56] LABS: CALCIUM 8.1 mg/dL (8.4-11.0); CREATININE 6.8 mg/dL (0.55-1.30); POTASSIUM 4.5 mmol/L (3.5-5.1)
[2017-12-06 07:05] LABS: ALBUMIN 2.7 g/dL (3.4-4.8); TOTAL BILIRUBIN 1.2 mg/dL (0.0-1.0)
[2017-12-06 07:10] LABS: BASOPHILS % (AUTO) 0.2 % (0.0-2.0); HEMATOCRIT 27.6 % (36-54); LYMPHOCYTES # (AUTO) 0.8 K/uL (1.0-5.5); MEAN CORPUSCULAR HEMOGLOBIN 33 pg (27-31); MEAN CORPUSCULAR HGB CONC 33 % (32-36); MEAN CORPUSCULAR VOLUME 98 fL (79.0-98.0); MONOCYTES % (AUTO) 7.6 % (1.7-9.3); NEUTROPHILS # (AUTO) 3.3 K/uL (1.8-7.7); NEUTROPHILS % (AUTO) 68.9 % (40.0-70.0); PLATELET COUNT (AUTO) 86 K/uL (130-430); RED BLOOD CELL COUNT(AUTO) 2.81 MIL/uL (4.2-6.2); RED CELL DISTRIBUTION WIDTH 16.5 % (9.0-15.0)
[2017-12-06] MEDS ORDERED: SERT50TA PO (09:21)
[2017-12-06] MEDS: ALPRAZolam 0.25 MG TABLET PO PRN ×2 (10:03→20:47)
[2017-12-06] MEDS: FLUTICASONE PROPIONATE 50 mCg/SPRAY 16 GM NS SCH ×2 (10:06→20:38)
[2017-12-06] MEDS: CALCIUM ACETATE 667 MG CAP PO SCH ×3 (15:00→20:31)
[2017-12-06] MEDS: ASPIRIN 81 MG TAB.CHEW PO SCH (15:04)
[2017-12-06] MEDS: AMIODARONE HCL 200 MG TABLET PO SCH (15:05)
[2017-12-06] MEDS: LOSARTAN POTASSIUM 50 MG TABLET (COZAAR) PO SCH (15:06)
[2017-12-06] MEDS: hydrALAZINE HCL 25 MG TABLET PO SCH ×2 (15:06→20:32)
[2017-12-06] MEDS: ISOSORBIDE MONONITRATE 30 MG TAB.ER.24H PO SCH ×2 (15:07→20:33)
[2017-12-06] MEDS: CARVEDILOL 25 MG TABLET (COREG) PO SCH ×2 (15:07→20:32)
[2017-12-06] MEDS: FERROUS SULFATE 325 MG TABLET.DR PO SCH ×2 (15:07→20:32)
[2017-12-06] MEDS: BRILINTA 90 MG PO SCH ×2 (15:08→20:34)
[2017-12-06] MEDS: traZODone HCL 50 MG TABLET (DESYREL) PO SCH (20:33)
[2017-12-06] MEDS: ATORVASTATIN 20 MG TABLET PO SCH (20:33)
[2017-12-06] MEDS: FUROSEMIDE 40 MG/4 ML VIAL IVP SCH (20:35)
== END 2017-12-06 21:26 | disposition home or self-care (01) | DRG 291 ==
LOC: SED 14:49 → STU 19:25
PROVIDERS: ADMIT Internal Medicine Hospice and Palliative Medicine; ATTEND Internal Medicine Hospice and Palliative Medicine
PROC: 5A1D70Z Performance of Urinary Filtration, Intermittent, Less than 6 Hours Per Day (ICD-10-PCS; principal; 2017-12-04)
PROC: 5A1D70Z Performance of Urinary Filtration, Intermittent, Less than 6 Hours Per Day (ICD-10-PCS; 2017-12-06)
DX: I13.2 Hypertensive heart and chronic kidney disease with heart failure and with stage 5 chronic kidney disease, or end stage renal disease (principal); I50.33 Acute on chronic diastolic (congestive) heart failure; N18.6 End stage renal disease; J44.1 Chronic obstructive pulmonary disease with (acute) exacerbation; E87.3 Alkalosis; E78.5 Hyperlipidemia, unspecified; M54.9 Dorsalgia, unspecified; I48.91 Unspecified atrial fibrillation; I25.10 Atherosclerotic heart disease of native coronary artery without angina pectoris; G89.4 Chronic pain syndrome; F17.200 Nicotine dependence, unspecified, uncomplicated; F41.9 Anxiety disorder, unspecified; F32.9 Major depressive disorder, single episode, unspecified; E66.9 Obesity, unspecified; Z68.31 Body mass index [BMI] 31.0-31.9, adult; Z95.5 Presence of coronary angioplasty implant and graft; Z99.2 Dependence on renal dialysis; Z91.14 Patient's other noncompliance with medication regimen; Z86.79 Personal history of other diseases of the circulatory system; Z79.82 Long term (current) use of aspirin; Z79.899 Other long term (current) drug therapy
CPT/HCPCS: 36415; 36600; 71045; 80048; 80053; 82550-TC; 82803-TC; 83880; 84484; 85007; 85025; 85027; 85610-TC; 87081; 90935; 90937; 93005; 94640; 94760; 99285; J1940; J7030; J7613

== ENCOUNTER 2018-05-18 09:19 | Inpatient (IN) | payer BC ==
[~2018-05-18] VITALS: Ht 180.3 cm; Wt 107.1 kg
[~2018-05-18 09:19] MED LIST changes: +ALBU8.5H8 INH; +ALPR0.25 PO; +AMIO200T2 PO; +AMLO5TAB4 PO; +ASPI-1155 PO; +CALC667T5 PO; -CAT.1 PO; +CILO100T PO; +FERR-57 PO; +FLUT16SP16 NS; +FLUT1DIS3 INH; -GABA-531 PO; +HYDR-1189 PO; +LOSA50TA3 PO; +SERT50TA PO; +SODI1POW18 PO; +TRAZ-126 PO; +[UNRECOGNIZED DRUG - CODE] MC
[2018-05-18 09:25] VITALS: BP_SYST 183
[2018-05-18 10:21] LABS: BASOPHILS % (AUTO) 0.1 % (0.0-2.0); EOSINOPHILS # (AUTO) 0.2 K/uL (0.0-0.4); EOSINOPHILS % (AUTO) 1.6 % (0.0-4.0); HEMATOCRIT 29.5 % (36-54); LYMPHOCYTES % (AUTO) 10.2 % (20.5-51.5); MEAN CORPUSCULAR HEMOGLOBIN 33 pg (27-31); MEAN CORPUSCULAR HGB CONC 34 % (32-36); MEAN CORPUSCULAR VOLUME 97 fL (79.0-98.0); MONOCYTES # (AUTO) 0.5 K/uL (0.0-1.0); MONOCYTES % (AUTO) 4.7 % (1.7-9.3); NEUTROPHILS # (AUTO) 8.4 K/uL (1.8-7.7); NEUTROPHILS % (AUTO) 83.4 % (40.0-70.0); PLATELET COUNT (AUTO) 131 K/uL (130-430); RED BLOOD CELL COUNT(AUTO) 3.03 MIL/uL (4.2-6.2); RED CELL DISTRIBUTION WIDTH 16.6 % (9.0-15.0); WHITE BLOOD COUNT (AUTO) 10.1 K/uL (4.8-10.8)
[2018-05-18 10:28] LABS: CALCIUM 8.8 mg/dL (8.4-11.0)
[2018-05-18 10:33] LABS: ALBUMIN 3.4 g/dL (3.4-4.8); TOTAL BILIRUBIN 1.6 mg/dL (0.0-1.0)
[2018-05-18 10:35] LABS: PROTHROMBIN TIME 10.3 SECS (9.5-12.5)
[2018-05-18 10:42] LABS: CREATININE 9.35 mg/dL (0.55-1.30)
[2018-05-18] MEDS ORDERED: cefTRIAXone 1 GM VIAL IM ONE (10:45)
[2018-05-18] MEDS ORDERED: LIDOCAINE 1%, 20 ML MDV 20 ML ONE (11:23)
[2018-05-18 11:33] VITALS: BP_SYST 204
[2018-05-18] MEDS: cloNIDine HCL 0.1 MG TABLET PO PRN (13:37)
[2018-05-18] MEDS: cefTRIAXone 1 GM IVPB PREMIX 50 ML IV SCH ×2 (14:00→15:39)
[2018-05-18] MEDS ORDERED: ALPRAZolam 0.25 MG TABLET PO SCH (14:00)
[2018-05-18 14:15] VITALS: BP_SYST 187
[2018-05-18 14:36] VITALS: BP_SYST 160
[2018-05-18] MEDS: HYDROcodone/ACETAMIN 5-325 MG TAB (NORCO/ VICODIN) PO PRN (15:37)
[2018-05-18 16:02] VITALS: BP_SYST 167
[2018-05-18] MEDS: ALBUTEROL SULFATE 0.083% 2.5 MG/3 ML VIAL.NEB INH PRN (16:08)
[2018-05-18] MEDS: IPRATROPIUM BROM 0.5 MG/2.5 ML VIAL.NEB (ATROVENT) INH PRN (16:08)
[2018-05-18 20:14] VITALS: BP_SYST 184
[2018-05-18] MEDS: CARVEDILOL 25 MG TABLET (COREG) PO SCH (20:51)
[2018-05-18] MEDS: traZODone HCL 50 MG TABLET (DESYREL) PO SCH (20:51)
[2018-05-18] MEDS: FERROUS SULFATE 325 MG TABLET.DR PO SCH (20:52)
[2018-05-18] MEDS: ATORVASTATIN 20 MG TABLET PO SCH (20:52)
[2018-05-18] MEDS: ISOSORBIDE MONONITRATE 30 MG TAB.ER.24H PO SCH (20:52)
[2018-05-19 00:06] VITALS: BP_SYST 197
[2018-05-19 02:02] VITALS: BP_SYST 147
[2018-05-19] MEDS: HYDROcodone/ACETAMIN 5-325 MG TAB (NORCO/ VICODIN) PO PRN ×2 (02:06→10:02)
[2018-05-19 08:35] VITALS: BP_SYST 165
[2018-05-19] MEDS: LOSARTAN POTASSIUM 50 MG TABLET (COZAAR) PO SCH (08:39)
[2018-05-19] MEDS: SERTRALINE HCL 50 MG TABLET PO SCH (08:40)
[2018-05-19] MEDS: ISOSORBIDE MONONITRATE 30 MG TAB.ER.24H PO SCH ×2 (08:40→21:21)
[2018-05-19] MEDS: amLODIPine BESYLATE 5 MG TABLET PO SCH (08:40)
[2018-05-19] MEDS: FERROUS SULFATE 325 MG TABLET.DR PO SCH ×2 (08:40→21:21)
[2018-05-19] MEDS: CARVEDILOL 25 MG TABLET (COREG) PO SCH ×2 (08:40→21:21)
[2018-05-19] MEDS: AMIODARONE HCL 200 MG TABLET PO SCH (08:41)
[2018-05-19] MEDS: ASPIRIN 81 MG TAB.CHEW PO SCH (08:41)
[2018-05-19] MEDS: ALBUTEROL SULFATE 0.083% 2.5 MG/3 ML VIAL.NEB INH PRN (08:49)
[2018-05-19] MEDS: IPRATROPIUM BROM 0.5 MG/2.5 ML VIAL.NEB (ATROVENT) INH PRN (08:49)
[2018-05-19] MEDS ORDERED: ALBUTEROL SULFATE 0.083% 2.5 MG/3 ML VIAL.NEB INH PRN (11:00)
[2018-05-19] MEDS ORDERED: IPRATROPIUM BROM 0.5 MG/2.5 ML VIAL.NEB (ATROVENT) INH PRN (11:00)
[2018-05-19] MEDS: cefTRIAXone 1 GM in D5W 50 ML IV SCH (11:26)
[2018-05-19] MEDS: AZITHROMYCIN 500 MG in NS 250 ML IV SCH (12:02)
[2018-05-19 12:30] VITALS: BP_SYST 122
[2018-05-19] MEDS: IPRATROPIUM BROM 0.5 MG/2.5 ML VIAL.NEB (ATROVENT) INH SCH ×2 (14:23→20:27)
[2018-05-19] MEDS: ALBUTEROL SULFATE 0.083% 2.5 MG/3 ML VIAL.NEB INH SCH ×2 (14:23→20:27)
[2018-05-19 16:59] VITALS: BP_SYST 130
[2018-05-19 20:00] VITALS: BP_SYST 134
[2018-05-19] MEDS: traZODone HCL 50 MG TABLET (DESYREL) PO SCH (21:21)
[2018-05-19] MEDS: ATORVASTATIN 20 MG TABLET PO SCH (21:21)
[2018-05-20 00:07] VITALS: BP_SYST 137
[2018-05-20] MEDS: IPRATROPIUM BROM 0.5 MG/2.5 ML VIAL.NEB (ATROVENT) INH SCH ×3 (01:46→19:35)
[2018-05-20] MEDS: ALBUTEROL SULFATE 0.083% 2.5 MG/3 ML VIAL.NEB INH SCH ×3 (01:46→19:34)
[2018-05-20] MEDS: HYDROcodone/ACETAMIN 5-325 MG TAB (NORCO/ VICODIN) PO PRN ×3 (05:15→23:55)
[2018-05-20 08:00] VITALS: BP_SYST 144
[2018-05-20] MEDS ORDERED: ALBUTEROL MDI INHALATION 8 GM INH INH SCH (08:45)
[2018-05-20] MEDS: SERTRALINE HCL 50 MG TABLET PO SCH (08:55)
[2018-05-20] MEDS: FERROUS SULFATE 325 MG TABLET.DR PO SCH ×2 (08:55→20:27)
[2018-05-20] MEDS: ASPIRIN 81 MG TAB.CHEW PO SCH (08:55)
[2018-05-20] MEDS: ISOSORBIDE MONONITRATE 30 MG TAB.ER.24H PO SCH ×2 (08:56→20:27)
[2018-05-20] MEDS: amLODIPine BESYLATE 5 MG TABLET PO SCH (08:56)
[2018-05-20] MEDS: LOSARTAN POTASSIUM 50 MG TABLET (COZAAR) PO SCH (08:57)
[2018-05-20] MEDS: CARVEDILOL 25 MG TABLET (COREG) PO SCH ×2 (08:57→20:27)
[2018-05-20] MEDS: AMIODARONE HCL 200 MG TABLET PO SCH (08:58)
[2018-05-20] MEDS ORDERED: FLUTICASONE 250 mCg/SALMETEROL 50 mCg DISKUS W.DEV INH SCH (09:00)
[2018-05-20] MEDS: FLUTICASONE PROPIONATE 50 mCg/SPRAY 16 GM NS SCH ×2 (09:09→20:28)
[2018-05-20 11:33] VITALS: BP_SYST 141
[2018-05-20] MEDS: AZITHROMYCIN 500 MG in NS 250 ML IV SCH (11:59)
[2018-05-20] MEDS: cefTRIAXone 1 GM in D5W 50 ML IV SCH (11:59)
[2018-05-20] MEDS: FLUTICASONE/VILANTEROL 1 EACH BLST.W.DEV INH SCH (12:00)
[2018-05-20 15:26] VITALS: BP_SYST 144
[2018-05-20] MEDS ORDERED: AZIT500T10 PO (17:27)
[2018-05-20] MEDS ORDERED: ALBU8.5H8 INH (17:29)
[2018-05-20 20:00] VITALS: BP_SYST 151
[2018-05-20] MEDS: ATORVASTATIN 20 MG TABLET PO SCH (20:26)
[2018-05-20] MEDS: traZODone HCL 50 MG TABLET (DESYREL) PO SCH (20:28)
[2018-05-20] MEDS: cloNIDine HCL 0.1 MG TABLET PO PRN (23:51)
[2018-05-21 00:24] VITALS: BP_SYST 170
[2018-05-21] MEDS: IPRATROPIUM BROM 0.5 MG/2.5 ML VIAL.NEB (ATROVENT) INH SCH ×2 (00:51→07:18)
[2018-05-21] MEDS: ALBUTEROL SULFATE 0.083% 2.5 MG/3 ML VIAL.NEB INH SCH ×2 (00:51→07:18)
[2018-05-21 07:44] VITALS: BP_SYST 126
[2018-05-21] MEDS: SERTRALINE HCL 50 MG TABLET PO SCH (08:39)
[2018-05-21] MEDS: FERROUS SULFATE 325 MG TABLET.DR PO SCH (08:39)
[2018-05-21] MEDS: ASPIRIN 81 MG TAB.CHEW PO SCH (08:39)
[2018-05-21] MEDS: ISOSORBIDE MONONITRATE 30 MG TAB.ER.24H PO SCH (08:39)
[2018-05-21 08:40] LABS: CALCIUM 8.8 mg/dL (8.4-11.0); CREATININE 7.23 mg/dL (0.55-1.30); POTASSIUM 4.1 mmol/L (3.5-5.1)
[2018-05-21] MEDS: LOSARTAN POTASSIUM 50 MG TABLET (COZAAR) PO SCH (08:40)
[2018-05-21] MEDS: CARVEDILOL 25 MG TABLET (COREG) PO SCH (08:40)
[2018-05-21 08:41] LABS: ALBUMIN 3.1 g/dL (3.4-4.8)
[2018-05-21] MEDS: amLODIPine BESYLATE 5 MG TABLET PO SCH (08:41)
[2018-05-21] MEDS: AMIODARONE HCL 200 MG TABLET PO SCH (08:42)
[2018-05-21] MEDS: FLUTICASONE/VILANTEROL 1 EACH BLST.W.DEV INH SCH (08:46)
[2018-05-21] MEDS: FLUTICASONE PROPIONATE 50 mCg/SPRAY 16 GM NS SCH (08:46)
[2018-05-21 09:41] LABS: HEMATOCRIT 27.6 % (36-54); HEMOGLOBIN 9.1 g/dL (14.0-18.0); MEAN CORPUSCULAR HEMOGLOBIN 33 pg (27-31); MEAN CORPUSCULAR HGB CONC 33 % (32-36); MEAN CORPUSCULAR VOLUME 99 fL (79.0-98.0); PLATELET COUNT (AUTO) 117 K/uL (130-430); RED BLOOD CELL COUNT(AUTO) 2.78 MIL/uL (4.2-6.2); RED CELL DISTRIBUTION WIDTH 17.1 % (9.0-15.0); WHITE BLOOD COUNT (AUTO) 3.9 K/uL (4.8-10.8)
[2018-05-21 09:43] LABS: BASOPHILS % (AUTO) 0.4 % (0.0-2.0); EOSINOPHILS # (AUTO) 0.2 K/uL (0.0-0.4); EOSINOPHILS % (AUTO) 4.7 % (0.0-4.0); LYMPHOCYTES # (AUTO) 0.8 K/uL (1.0-5.5); LYMPHOCYTES % (AUTO) 21.9 % (20.5-51.5); MONOCYTES # (AUTO) 0.7 K/uL (0.0-1.0); NEUTROPHILS # (AUTO) 2.2 K/uL (1.8-7.7)
[2018-05-21] MEDS: cefTRIAXone 1 GM in D5W 50 ML IV SCH (10:36)
[2018-05-21] MEDS: AZITHROMYCIN 500 MG in NS 250 ML IV SCH (10:37)
[2018-05-21 10:55] VITALS: BP_SYST 126
[2018-05-21 11:27] VITALS: BP_SYST 146
== END 2018-05-21 12:50 | disposition home or self-care (01) | DRG 291 ==
LOC: SED 09:19 → STU 11:00
PROVIDERS: ADMIT Internal Medicine Hospice and Palliative Medicine; ATTEND Internal Medicine Hospice and Palliative Medicine
PROC: 5A1D70Z Performance of Urinary Filtration, Intermittent, Less than 6 Hours Per Day (ICD-10-PCS; principal; 2018-05-18)
PROC: 5A1D70Z Performance of Urinary Filtration, Intermittent, Less than 6 Hours Per Day (ICD-10-PCS; 2018-05-20)
DX: I13.2 Hypertensive heart and chronic kidney disease with heart failure and with stage 5 chronic kidney disease, or end stage renal disease (principal); J18.1 Lobar pneumonia, unspecified organism; N18.6 End stage renal disease; J44.0 Chronic obstructive pulmonary disease with (acute) lower respiratory infection; Z99.2 Dependence on renal dialysis; E78.5 Hyperlipidemia, unspecified; I25.10 Atherosclerotic heart disease of native coronary artery without angina pectoris; I50.9 Heart failure, unspecified; Z87.891 Personal history of nicotine dependence; Z91.15 Patient's noncompliance with renal dialysis; Z95.5 Presence of coronary angioplasty implant and graft
CPT/HCPCS: 36415; 71045; 80053; 82550-TC; 83880; 84484; 85025; 85610-TC; 87081; 90935; 90937; 93005; 94640; 94760; 96372; 99285; G0378; J0456; J0696; J2001; J7030; J7050; J7060; J7613

== ENCOUNTER 2018-06-06 04:58 | Inpatient (IN) | payer BC ==
[~2018-06-06] VITALS: Ht 180.3 cm; Wt 108.0 kg
[2018-06-06 04:58] VITALS: BP_SYST 182
[~2018-06-06 04:58] MED LIST changes: +AZIT500T10 PO
[2018-06-06] MEDS ORDERED: NITROGLYCERIN 1 INCH (GM) OINT. TP ONE (05:15)
[2018-06-06] MEDS ORDERED: NITROGLYCERIN 1 INCH (GM) OINT. ONE (05:26)
[2018-06-06 05:51] LABS: BASOPHILS % (AUTO) 0.3 % (0.0-2.0); EOSINOPHILS # (AUTO) 0.1 K/uL (0.0-0.4); EOSINOPHILS % (AUTO) 1.7 % (0.0-4.0); HEMOGLOBIN 10.1 g/dL (14.0-18.0); LYMPHOCYTES # (AUTO) 0.7 K/uL (1.0-5.5); LYMPHOCYTES % (AUTO) 9.1 % (20.5-51.5); MEAN CORPUSCULAR HEMOGLOBIN 34 pg (27-31); MEAN CORPUSCULAR HGB CONC 34 % (32-36); MEAN CORPUSCULAR VOLUME 101 fL (79.0-98.0); MONOCYTES # (AUTO) 0.6 K/uL (0.0-1.0); MONOCYTES % (AUTO) 7.8 % (1.7-9.3); NEUTROPHILS # (AUTO) 6.3 K/uL (1.8-7.7); NEUTROPHILS % (AUTO) 81.1 % (40.0-70.0); PLATELET COUNT (AUTO) 117 K/uL (130-430); RED BLOOD CELL COUNT(AUTO) 2.97 MIL/uL (4.2-6.2); RED CELL DISTRIBUTION WIDTH 17.3 % (9.0-15.0); WHITE BLOOD COUNT (AUTO) 7.7 K/uL (4.8-10.8)
[2018-06-06 05:58] LABS: CALCIUM 9.1 mg/dL (8.4-11.0); POTASSIUM 4.2 mmol/L (3.5-5.1)
[2018-06-06] MEDS ORDERED: MORPHINE 4 MG/ML INJ. SYRINGE IVP ONE (06:00)
[2018-06-06 06:03] LABS: ALBUMIN 3.4 g/dL (3.4-4.8); TOTAL BILIRUBIN 1.7 mg/dL (0.0-1.0)
[2018-06-06 06:04] LABS: PROTHROMBIN TIME 9.8 SECS (9.5-12.5)
[2018-06-06 06:07] LABS: CREATININE 8.92 mg/dL (0.55-1.30)
[2018-06-06] MEDS ORDERED: ASPIRIN 81 MG TAB.CHEW PO ONE (06:30)
[2018-06-06] MEDS ORDERED: PIPERACILLIN/TAZO 3.375 GM in NS 50 ML IV ONE (06:45)
[2018-06-06] MEDS ORDERED: PIPERACILLIN/TAZOBACTAM 3.375 GM/VIAL (ZOSYN) IV ONE (06:59)
[2018-06-06 08:00] VITALS: BP_SYST 179
[2018-06-06] MEDS ORDERED: cloNIDine HCL 0.1 MG TABLET PO ONE (08:00)
[2018-06-06] MEDS ORDERED: HYDROcodone/ACETAMIN 5-325 MG TAB (NORCO/ VICODIN) PO SCH (09:00)
[2018-06-06] MEDS ORDERED: FLUTICASONE 250 mCg/SALMETEROL 50 mCg DISKUS W.DEV INH SCH (09:00)
[2018-06-06] MEDS ORDERED: BRILINTA 90 MG PO SCH (09:00)
[2018-06-06] MEDS ORDERED: AZITHROMYCIN PO SCH (09:00)
[2018-06-06] MEDS ORDERED: ALPRAZolam 0.25 MG TABLET PO PRN (09:00)
[2018-06-06] MEDS ORDERED: NON-FORMULARY MEDICATION (Ticagrelor (Brilinta) 90 MG) PO SCH (09:00)
[2018-06-06] MEDS ORDERED: [UNRECOGNIZED DRUG - OTHER] PO SCH (09:00)
[2018-06-06] MEDS ORDERED: IPRATROPIUM BROM 0.5 MG/2.5 ML VIAL.NEB (ATROVENT) INH PRN (09:00)
[2018-06-06] MEDS ORDERED: ALBUTEROL SULFATE 0.083% 2.5 MG/3 ML VIAL.NEB INH PRN (09:00)
[2018-06-06 09:14] VITALS: BP_SYST 179
[2018-06-06] MEDS: cefTRIAXone 1 GM IVPB PREMIX 50 ML IV SCH (10:19)
[2018-06-06] MEDS: AZITHROMYCIN 500 MG in NS 250 ML IV SCH (11:02)
[2018-06-06] MEDS: ISOSORBIDE MONONITRATE 30 MG TAB.ER.24H PO SCH ×2 (11:02→21:08)
[2018-06-06] MEDS: HYDROcodone/ACETAMIN 5-325 MG TAB (NORCO/ VICODIN) PO PRN ×2 (11:03→18:25)
[2018-06-06] MEDS: CILOSTAZOL 50 MG TABLET (PLETAL) PO SCH ×2 (11:03→21:08)
[2018-06-06] MEDS: ASPIRIN 81 MG TAB.CHEW PO SCH (11:03)
[2018-06-06] MEDS: SERTRALINE HCL 50 MG TABLET PO SCH (11:04)
[2018-06-06] MEDS: AMIODARONE HCL 200 MG TABLET PO SCH (11:04)
[2018-06-06] MEDS: FLUTICASONE PROPIONATE 50 mCg/SPRAY 16 GM NS SCH ×2 (11:09→21:06)
[2018-06-06] MEDS: IPRATROPIUM BROM 0.5 MG/2.5 ML VIAL.NEB (ATROVENT) INH SCH ×4 (11:16→23:00)
[2018-06-06] MEDS: ALBUTEROL SULFATE 0.083% 2.5 MG/3 ML VIAL.NEB INH SCH ×4 (11:16→23:00)
[2018-06-06] MEDS: hydrALAZINE HCL 10 MG TABLET PO SCH ×4 (12:00→23:30)
[2018-06-06 12:42] VITALS: BP_SYST 164
[2018-06-06 17:14] VITALS: BP_SYST 160
[2018-06-06] MEDS: amLODIPine BESYLATE 5 MG TABLET PO SCH (17:20)
[2018-06-06] MEDS: LOSARTAN POTASSIUM 50 MG TABLET (COZAAR) PO SCH (17:20)
[2018-06-06] MEDS: CARVEDILOL 25 MG TABLET (COREG) PO SCH ×2 (17:21→21:09)
[2018-06-06] MEDS: BUDESONIDE 0.5 MG/2 ML AMPUL.NEB INH SCH (19:00)
[2018-06-06 20:52] VITALS: BP_SYST 157
[2018-06-06] MEDS: BRILINTA 90 MG PO SCH (21:07)
[2018-06-06] MEDS: traZODone HCL 50 MG TABLET (DESYREL) PO SCH (21:08)
[2018-06-06] MEDS: ATORVASTATIN 20 MG TABLET PO SCH (21:09)
[2018-06-07 00:01] VITALS: BP_SYST 121
[2018-06-07] MEDS: IPRATROPIUM BROM 0.5 MG/2.5 ML VIAL.NEB (ATROVENT) INH SCH ×6 (03:00→23:00)
[2018-06-07] MEDS: ALBUTEROL SULFATE 0.083% 2.5 MG/3 ML VIAL.NEB INH SCH ×6 (03:00→23:00)
[2018-06-07] MEDS: hydrALAZINE HCL 10 MG TABLET PO SCH ×4 (05:12→23:34)
[2018-06-07] MEDS: BUDESONIDE 0.5 MG/2 ML AMPUL.NEB INH SCH ×2 (07:00→20:15)
[2018-06-07 08:07] VITALS: BP_SYST 164
[2018-06-07] MEDS: cefTRIAXone 1 GM IVPB PREMIX 50 ML IV SCH (08:30)
[2018-06-07] MEDS: FLUTICASONE PROPIONATE 50 mCg/SPRAY 16 GM NS SCH ×2 (08:31→20:09)
[2018-06-07] MEDS: SERTRALINE HCL 50 MG TABLET PO SCH (08:32)
[2018-06-07] MEDS: ISOSORBIDE MONONITRATE 30 MG TAB.ER.24H PO SCH ×2 (08:32→20:10)
[2018-06-07] MEDS: BRILINTA 90 MG PO SCH ×2 (08:32→20:12)
[2018-06-07] MEDS: CILOSTAZOL 50 MG TABLET (PLETAL) PO SCH ×2 (08:32→20:10)
[2018-06-07] MEDS: amLODIPine BESYLATE 5 MG TABLET PO SCH (08:32)
[2018-06-07] MEDS: CARVEDILOL 25 MG TABLET (COREG) PO SCH ×2 (08:33→20:11)
[2018-06-07] MEDS: LOSARTAN POTASSIUM 50 MG TABLET (COZAAR) PO SCH (08:33)
[2018-06-07] MEDS: ASPIRIN 81 MG TAB.CHEW PO SCH (08:34)
[2018-06-07] MEDS: AMIODARONE HCL 200 MG TABLET PO SCH (08:34)
[2018-06-07] MEDS: AZITHROMYCIN 500 MG in NS 250 ML IV SCH (09:48)
[2018-06-07] MEDS: HYDROcodone/ACETAMIN 5-325 MG TAB (NORCO/ VICODIN) PO PRN (10:49)
[2018-06-07] MEDS ORDERED: MORPHINE 4 MG/ML INJ. SYRINGE IVP ONE (12:15)
[2018-06-07 12:33] VITALS: BP_SYST 132
[2018-06-07 17:13] VITALS: BP_SYST 119
[2018-06-07 20:00] VITALS: BP_SYST 157
[2018-06-07] MEDS: ATORVASTATIN 20 MG TABLET PO SCH (20:09)
[2018-06-07] MEDS: traZODone HCL 50 MG TABLET (DESYREL) PO SCH (20:10)
[2018-06-07 23:31] VITALS: BP_SYST 134
[2018-06-08] MEDS: IPRATROPIUM BROM 0.5 MG/2.5 ML VIAL.NEB (ATROVENT) INH SCH ×4 (03:00→15:18)
[2018-06-08] MEDS: ALBUTEROL SULFATE 0.083% 2.5 MG/3 ML VIAL.NEB INH SCH ×4 (03:00→15:18)
[2018-06-08] MEDS: hydrALAZINE HCL 10 MG TABLET PO SCH ×3 (05:42→18:00)
[2018-06-08] MEDS: BUDESONIDE 0.5 MG/2 ML AMPUL.NEB INH SCH (07:00)
[2018-06-08 08:00] VITALS: BP_SYST 148
[2018-06-08] MEDS: ASPIRIN 81 MG TAB.CHEW PO SCH (09:00)
[2018-06-08] MEDS: FLUTICASONE PROPIONATE 50 mCg/SPRAY 16 GM NS SCH (09:17)
[2018-06-08] MEDS: cefTRIAXone 1 GM IVPB PREMIX 50 ML IV SCH (09:18)
[2018-06-08] MEDS: AMIODARONE HCL 200 MG TABLET PO SCH (09:19)
[2018-06-08] MEDS: CILOSTAZOL 50 MG TABLET (PLETAL) PO SCH (09:20)
[2018-06-08] MEDS: amLODIPine BESYLATE 5 MG TABLET PO SCH (09:20)
[2018-06-08] MEDS: CARVEDILOL 25 MG TABLET (COREG) PO SCH (09:21)
[2018-06-08] MEDS: LOSARTAN POTASSIUM 50 MG TABLET (COZAAR) PO SCH (09:21)
[2018-06-08] MEDS: BRILINTA 90 MG PO SCH (09:22)
[2018-06-08] MEDS: ISOSORBIDE MONONITRATE 30 MG TAB.ER.24H PO SCH (09:22)
[2018-06-08] MEDS: SERTRALINE HCL 50 MG TABLET PO SCH (09:23)
[2018-06-08 12:00] VITALS: BP_SYST 147
[2018-06-08] MEDS: AZITHROMYCIN 500 MG in NS 250 ML IV SCH (13:16)
[2018-06-08] MEDS ORDERED: AMOX-426 PO (14:07)
[2018-06-08] MEDS ORDERED: medrol pack (14:08)
[2018-06-08 17:00] VITALS: BP_SYST 116
[2018-06-08 17:17] VITALS: BP_SYST 116
[2018-06-09] MEDS ORDERED: SODIUM BICARBONATE 650 MG TABLET PO SCH (09:00)
== END 2018-06-08 18:30 | disposition home or self-care (01) | DRG 193 ==
LOC: SED 04:58 → STU 06:44
PROVIDERS: ADMIT Internal Medicine Hospice and Palliative Medicine; ATTEND Internal Medicine Hospice and Palliative Medicine
PROC: 5A1D70Z Performance of Urinary Filtration, Intermittent, Less than 6 Hours Per Day (ICD-10-PCS; principal; 2018-06-06)
PROC: 5A1D70Z Performance of Urinary Filtration, Intermittent, Less than 6 Hours Per Day (ICD-10-PCS; 2018-06-08)
DX: J18.9 Pneumonia, unspecified organism (principal); N18.6 End stage renal disease; I13.2 Hypertensive heart and chronic kidney disease with heart failure and with stage 5 chronic kidney disease, or end stage renal disease; J44.0 Chronic obstructive pulmonary disease with (acute) lower respiratory infection; F17.200 Nicotine dependence, unspecified, uncomplicated; I50.9 Heart failure, unspecified; Z99.2 Dependence on renal dialysis; Z79.899 Other long term (current) drug therapy
CPT/HCPCS: 36415; 36600; 71045; 80053; 82803-TC; 83605; 83880; 84484; 85025; 85610-TC; 85730-TC; 87040-TC; 87081; 90935; 90937; 93005; 94640; 94760; 96365; 96375; 99285; G0378; J0456; J0696; J2270; J2543; J7030; J7050; J7613; J7626

== ENCOUNTER 2018-06-14 06:15 | Inpatient (IN) | payer BC ==
[~2018-06-14] VITALS: Ht 180.3 cm; Wt 104.3 kg
[~2018-06-14 06:15] MED LIST changes: +AMOX-426 PO; -AZIT500T10 PO; +medrol pack
[2018-06-14 06:21] VITALS: BP_SYST 188
[2018-06-14 07:32] LABS: CALCIUM 9.1 mg/dL (8.4-11.0); CREATININE 6.03 mg/dL (0.55-1.30); POTASSIUM 4.5 mmol/L (3.5-5.1); PROTHROMBIN TIME 10.4 SECS (9.5-12.5)
[2018-06-14 07:34] LABS: ALBUMIN 3.5 g/dL (3.4-4.8); TOTAL BILIRUBIN 1.2 mg/dL (0.0-1.0)
[2018-06-14 07:37] LABS: BASOPHILS % (AUTO) 0.3 % (0.0-2.0); EOSINOPHILS # (AUTO) 0.1 K/uL (0.0-0.4); EOSINOPHILS % (AUTO) 1.7 % (0.0-4.0); HEMOGLOBIN 9.6 g/dL (14.0-18.0); LYMPHOCYTES # (AUTO) 1.1 K/uL (1.0-5.5); LYMPHOCYTES % (AUTO) 14.1 % (20.5-51.5); MEAN CORPUSCULAR HEMOGLOBIN 33 pg (27-31); MEAN CORPUSCULAR HGB CONC 33 % (32-36); MEAN CORPUSCULAR VOLUME 101 fL (79.0-98.0); MONOCYTES # (AUTO) 0.5 K/uL (0.0-1.0); MONOCYTES % (AUTO) 6.9 % (1.7-9.3); PLATELET COUNT (AUTO) 157 K/uL (130-430); RED BLOOD CELL COUNT(AUTO) 2.88 MIL/uL (4.2-6.2); WHITE BLOOD COUNT (AUTO) 7.7 K/uL (4.8-10.8)
[2018-06-14] MEDS ORDERED: hydrALAZINE HCL 20 MG/ML VIAL IVP ONE (08:00)
[2018-06-14] MEDS ORDERED: MORPHINE 4 MG/ML INJ. SYRINGE IVP ONE ×2 (08:00→08:45)
[2018-06-14] MEDS ORDERED: hydrALAZINE HCL 20 MG/ML VIAL ONE (08:10)
[2018-06-14] MEDS ORDERED: MORPHINE 4 MG/ML INJ. SYRINGE ONE ×2 (08:10→08:44)
[2018-06-14] MEDS ORDERED: ALBUTEROL SULFATE 0.083% 2.5 MG/3 ML VIAL.NEB INH PRN (08:45)
[2018-06-14] MEDS ORDERED: IPRATROPIUM BROM 0.5 MG/2.5 ML VIAL.NEB (ATROVENT) INH PRN (08:45)
[2018-06-14 09:25] VITALS: BP_SYST 175
[2018-06-14 10:01] VITALS: BP_SYST 175
[2018-06-14] MEDS ORDERED: amLODIPine BESYLATE 5 MG TABLET PO ONE (10:15)
[2018-06-14] MEDS ORDERED: CARVEDILOL 25 MG TABLET (COREG) PO ONE (10:15)
[2018-06-14] MEDS ORDERED: FUROSEMIDE 40 MG/4 ML VIAL IVP ONE (10:45)
[2018-06-14] MEDS: cefTRIAXone 1 GM in D5W 50 ML IV SCH (11:01)
[2018-06-14] MEDS: AZITHROMYCIN 500 MG in NS 250 ML IV SCH (11:35)
[2018-06-14] MEDS: ALBUTEROL SULFATE 0.083% 2.5 MG/3 ML VIAL.NEB INH SCH ×2 (13:35→19:42)
[2018-06-14] MEDS: IPRATROPIUM BROM 0.5 MG/2.5 ML VIAL.NEB (ATROVENT) INH SCH ×2 (13:35→19:42)
[2018-06-14] MEDS ORDERED: methylPREDNISolone SOD SUCC/PF 62.5 MG/ML VIAL IVP SCH (14:00)
[2018-06-14 15:23] VITALS: BP_SYST 154
[2018-06-14 19:00] VITALS: BP_SYST 162
[2018-06-14 20:00] VITALS: BP_SYST 162
[2018-06-14] MEDS: CARVEDILOL 25 MG TABLET (COREG) PO SCH (20:55)
[2018-06-14] MEDS: LOSARTAN POTASSIUM 50 MG TABLET (COZAAR) PO SCH (20:55)
[2018-06-14] MEDS: amLODIPine BESYLATE 5 MG TABLET PO SCH (20:56)
[2018-06-14] MEDS: traZODone HCL 50 MG TABLET (DESYREL) PO PRN (23:57)
[2018-06-15 01:02] VITALS: BP_SYST 147
[2018-06-15] MEDS: IPRATROPIUM BROM 0.5 MG/2.5 ML VIAL.NEB (ATROVENT) INH SCH ×4 (01:20→20:27)
[2018-06-15] MEDS: ALBUTEROL SULFATE 0.083% 2.5 MG/3 ML VIAL.NEB INH SCH ×4 (01:20→20:28)
[2018-06-15 08:00] VITALS: BP_SYST 133
[2018-06-15] MEDS: ISOSORBIDE MONONITRATE 30 MG TAB.ER.24H PO SCH (08:54)
[2018-06-15] MEDS: LOSARTAN POTASSIUM 50 MG TABLET (COZAAR) PO SCH ×2 (08:54→21:22)
[2018-06-15] MEDS: CARVEDILOL 25 MG TABLET (COREG) PO SCH ×2 (08:55→21:22)
[2018-06-15] MEDS: amLODIPine BESYLATE 5 MG TABLET PO SCH ×2 (08:56→21:23)
[2018-06-15] MEDS: cefTRIAXone 1 GM in D5W 50 ML IV SCH (10:53)
[2018-06-15] MEDS: AZITHROMYCIN 500 MG in NS 250 ML IV SCH (11:26)
[2018-06-15 11:35] VITALS: BP_SYST 162
[2018-06-15 15:27] VITALS: BP_SYST 143
[2018-06-15] MEDS: traZODone HCL 50 MG TABLET (DESYREL) PO PRN (22:59)
[2018-06-16 00:39] VITALS: BP_SYST 155
[2018-06-16] MEDS: ALBUTEROL SULFATE 0.083% 2.5 MG/3 ML VIAL.NEB INH SCH ×3 (07:31→19:51)
[2018-06-16] MEDS: IPRATROPIUM BROM 0.5 MG/2.5 ML VIAL.NEB (ATROVENT) INH SCH ×3 (07:32→19:51)
[2018-06-16 08:00] VITALS: BP_SYST 165
[2018-06-16] MEDS: ISOSORBIDE MONONITRATE 30 MG TAB.ER.24H PO SCH (08:25)
[2018-06-16] MEDS: amLODIPine BESYLATE 5 MG TABLET PO SCH ×2 (08:26→20:37)
[2018-06-16] MEDS: LOSARTAN POTASSIUM 50 MG TABLET (COZAAR) PO SCH ×2 (08:26→20:38)
[2018-06-16] MEDS: CARVEDILOL 25 MG TABLET (COREG) PO SCH ×2 (08:27→20:35)
[2018-06-16] MEDS: cefTRIAXone 1 GM in D5W 50 ML IV SCH (09:27)
[2018-06-16] MEDS: AZITHROMYCIN 500 MG in NS 250 ML IV SCH (10:18)
[2018-06-16 12:45] VITALS: BP_SYST 120
[2018-06-16 16:32] VITALS: BP_SYST 124
[2018-06-16 19:45] VITALS: BP_SYST 150
[2018-06-16] MEDS: traZODone HCL 50 MG TABLET (DESYREL) PO PRN (23:05)
[2018-06-16 23:46] VITALS: BP_SYST 142
[2018-06-17] MEDS: IPRATROPIUM BROM 0.5 MG/2.5 ML VIAL.NEB (ATROVENT) INH SCH ×4 (00:49→20:01)
[2018-06-17] MEDS: ALBUTEROL SULFATE 0.083% 2.5 MG/3 ML VIAL.NEB INH SCH ×4 (00:49→20:01)
[2018-06-17 07:35] VITALS: BP_SYST 155
[2018-06-17] MEDS: amLODIPine BESYLATE 5 MG TABLET PO SCH ×2 (08:59→20:41)
[2018-06-17] MEDS: LOSARTAN POTASSIUM 50 MG TABLET (COZAAR) PO SCH ×2 (08:59→20:40)
[2018-06-17] MEDS: ISOSORBIDE MONONITRATE 30 MG TAB.ER.24H PO SCH (08:59)
[2018-06-17] MEDS: CARVEDILOL 25 MG TABLET (COREG) PO SCH ×2 (09:00→20:41)
[2018-06-17] MEDS: cefTRIAXone 1 GM in D5W 50 ML IV SCH (09:04)
[2018-06-17] MEDS: AZITHROMYCIN 500 MG in NS 250 ML IV SCH (09:35)
[2018-06-17 11:26] VITALS: BP_SYST 142
[2018-06-17 14:17] VITALS: BP_SYST 142
[2018-06-17 15:32] VITALS: BP_SYST 140
[2018-06-17 20:05] VITALS: BP_SYST 150
[2018-06-17] MEDS: BRILINTA 90 MG TABLET PO SCH (20:44)
[2018-06-17] MEDS: traZODone HCL 50 MG TABLET (DESYREL) PO PRN (22:15)
[2018-06-18 00:22] VITALS: BP_SYST 140
[2018-06-18] MEDS: ALBUTEROL SULFATE 0.083% 2.5 MG/3 ML VIAL.NEB INH SCH ×3 (00:28→13:00)
[2018-06-18] MEDS: IPRATROPIUM BROM 0.5 MG/2.5 ML VIAL.NEB (ATROVENT) INH SCH ×3 (00:29→13:00)
[2018-06-18 07:55] VITALS: BP_SYST 157
[2018-06-18] MEDS: ISOSORBIDE MONONITRATE 30 MG TAB.ER.24H PO SCH (09:30)
[2018-06-18] MEDS: amLODIPine BESYLATE 5 MG TABLET PO SCH (09:30)
[2018-06-18] MEDS: LOSARTAN POTASSIUM 50 MG TABLET (COZAAR) PO SCH (09:31)
[2018-06-18] MEDS: CARVEDILOL 25 MG TABLET (COREG) PO SCH (09:31)
[2018-06-18] MEDS: BRILINTA 90 MG TABLET PO SCH (09:32)
[2018-06-18] MEDS: cefTRIAXone 1 GM in D5W 50 ML IV SCH (09:43)
[2018-06-18] MEDS: AZITHROMYCIN 500 MG in NS 250 ML IV SCH (11:11)
[2018-06-18 11:42] VITALS: BP_SYST 149
[2018-06-18 12:58] VITALS: BP_SYST 146
== END 2018-06-18 14:50 | disposition home or self-care (01) | DRG 291 ==
LOC: SED 06:15 → STU 08:42
PROVIDERS: ADMIT Internal Medicine Hospice and Palliative Medicine; ATTEND Internal Medicine Hospice and Palliative Medicine
PROC: 5A1D70Z Performance of Urinary Filtration, Intermittent, Less than 6 Hours Per Day (ICD-10-PCS; principal; 2018-06-15)
PROC: 5A1D70Z Performance of Urinary Filtration, Intermittent, Less than 6 Hours Per Day (ICD-10-PCS; 2018-06-17)
DX: I13.2 Hypertensive heart and chronic kidney disease with heart failure and with stage 5 chronic kidney disease, or end stage renal disease (principal); N18.6 End stage renal disease; J44.1 Chronic obstructive pulmonary disease with (acute) exacerbation; I50.9 Heart failure, unspecified; E78.5 Hyperlipidemia, unspecified; I25.10 Atherosclerotic heart disease of native coronary artery without angina pectoris; G89.29 Other chronic pain; M54.5 Low back pain; D64.9 Anemia, unspecified; Z82.49 Family history of ischemic heart disease and other diseases of the circulatory system; Z87.891 Personal history of nicotine dependence; Z95.5 Presence of coronary angioplasty implant and graft; Z99.2 Dependence on renal dialysis; Z79.82 Long term (current) use of aspirin; Z79.899 Other long term (current) drug therapy; Z91.14 Patient's other noncompliance with medication regimen
CPT/HCPCS: 36415; 36600; 71045; 80053; 82803-TC; 83605; 83880; 84484; 85025; 85610-TC; 85730-TC; 87040-TC; 87081; 90935; 90937; 93005; 93970; 94640; 94760; 96374; 96375; 99285; G0378; J0360; J0456; J0696; J1940; J2270; J7030; J7050; J7060; J7613

== ENCOUNTER 2019-03-23 13:33 | Inpatient (IN) | payer BC ==
[~2019-03-23] VITALS: Ht 180.3 cm; Wt 102.1 kg
[~2019-03-23 13:33] MED LIST changes: -AMIO200T2 PO; +AMIO200T4 PO; -CALC667T5 PO; +CALC667T6 PO; -TRAZ-126 PO; +TRAZ-219 PO
[2019-03-23 13:35] VITALS: BP_SYST 155
[2019-03-23 15:04] LABS: BASOPHILS # (AUTO) 0.1 K/uL (0.0-0.2); BASOPHILS % (AUTO) 0.8 % (0.0-2.0); EOSINOPHILS # (AUTO) 0.1 K/uL (0.0-0.4); HEMATOCRIT 23.6 % (36-54); HEMOGLOBIN 7.9 g/dL (14.0-18.0); LYMPHOCYTES # (AUTO) 0.9 K/uL (1.0-5.5); LYMPHOCYTES % (AUTO) 12.1 % (20.5-51.5); MEAN CORPUSCULAR HEMOGLOBIN 36 pg (27-31); MEAN CORPUSCULAR HGB CONC 34 % (32-36); MEAN CORPUSCULAR VOLUME 107 fL (79.0-98.0); MONOCYTES # (AUTO) 0.6 K/uL (0.0-1.0); MONOCYTES % (AUTO) 7.9 % (1.7-9.3); NEUTROPHILS # (AUTO) 5.4 K/uL (1.8-7.7); NEUTROPHILS % (AUTO) 77.2 % (40.0-70.0); PLATELET COUNT (AUTO) 134 K/uL (130-430); RED BLOOD CELL COUNT(AUTO) 2.22 MIL/uL (4.2-6.2); RED CELL DISTRIBUTION WIDTH 16.1 % (9.0-15.0)
[2019-03-23 15:14] LABS: CALCIUM 8.2 mg/dL (8.4-11.0); POTASSIUM 5.3 mmol/L (3.5-5.1)
[2019-03-23 15:18] LABS: CREATININE 7.94 mg/dL (0.55-1.30)
[2019-03-23 15:19] LABS: ALBUMIN 2.9 g/dL (3.4-4.8); TOTAL BILIRUBIN 0.6 mg/dL (0.0-1.0)
[2019-03-23] MEDS ORDERED: PIPERACILLIN/TAZO 3.375 GM in NS 50 ML IV ONE ×2 (16:30→18:15)
[2019-03-23] MEDS ORDERED: IPRATROPIUM/ALBUTEROL SULFATE 3 ML AMPUL.NEB (DUONEB) INH ONE ×3 (16:30→18:15)
[2019-03-23] MEDS ORDERED: SODIUM POLYSTYRENE SULFONATE 15 GM/60 ML UDBTL PO ONE (17:15)
[2019-03-23] MEDS ORDERED: PIPERACILLIN/TAZOBACTAM 3.375 GM/VIAL (ZOSYN) IV ONE (17:16)
[2019-03-23] MEDS ORDERED: MORPHINE 4 MG/ML INJ. SYRINGE IVP ONE (18:15)
[2019-03-23] MEDS ORDERED: ONDANSETRON HCL 4 MG/2 ML VIAL IVP ONE (18:15)
[2019-03-23] MEDS ORDERED: APIX5TAB PO (18:39)
[2019-03-23] MEDS ORDERED: LIP40 PO (18:39)
[2019-03-23] MEDS ORDERED: FURO-149 PO (18:40)
[2019-03-23 19:51] VITALS: BP_SYST 127
[2019-03-24] VITALS (19 sets, daily range): BP systolic 102–169
[2019-03-24] MEDS ORDERED: ACETAMINOPHEN 325 MG TABLET PO PRN
[2019-03-24] MEDS ORDERED: ONDANSETRON HCL 4 MG/2 ML VIAL IVP PRN
[2019-03-24] MEDS ORDERED: HYDROcodone/ACETAMIN 5-325 MG TAB (NORCO/ VICODIN) PO PRN
[2019-03-24] MEDS ORDERED: AZITHROMYCIN 500 MG in NS 250 ML IV SCH (01:00)
[2019-03-24] MEDS: APIXABAN 2.5 MG TABLET PO SCH ×3 (01:02→17:27)
[2019-03-24] MEDS: HYDROcodone/ACETAMIN 10-325 MG TAB PO PRN (01:02)
[2019-03-24] MEDS: ALBUTEROL SULFATE 0.083% 2.5 MG/3 ML VIAL.NEB INH PRN ×3 (01:06→08:36)
[2019-03-24] MEDS ORDERED: AZITHROMYCIN 500 MG/VIAL (ZITHROMAX) IV ONE (01:13)
[2019-03-24] MEDS ORDERED: cefTRIAXone 1 GM IVPB PREMIX 50 ML IV ONE (01:14)
[2019-03-24] MEDS: cefTRIAXone 1 GM IVPB PREMIX 50 ML IV SCH ×2 (01:14→23:29)
[2019-03-24] MEDS ORDERED: IPRATROPIUM/ALBUTEROL SULFATE 3 ML AMPUL.NEB (DUONEB) INH PRN (06:15)
[2019-03-24] MEDS: AMIODARONE HCL 200 MG TABLET PO SCH (08:43)
[2019-03-24] MEDS: CARVEDILOL 25 MG TABLET (COREG) PO SCH ×2 (08:44→21:35)
[2019-03-24] MEDS: ISOSORBIDE MONONITRATE 30 MG TAB.ER.24H PO SCH ×2 (08:47→21:35)
[2019-03-24] MEDS: ATORVASTATIN 20 MG TABLET PO SCH (08:48)
[2019-03-24] MEDS: FUROSEMIDE 40 MG TABLET PO SCH (08:48)
[2019-03-24] MEDS: amLODIPine BESYLATE 5 MG TABLET PO SCH (08:49)
[2019-03-24 09:43] LABS: BASOPHILS # (AUTO) 0.1 K/uL (0.0-0.2); BASOPHILS % (AUTO) 0.9 % (0.0-2.0); EOSINOPHILS # (AUTO) 0.1 K/uL (0.0-0.4); EOSINOPHILS % (AUTO) 1.7 % (0.0-4.0); HEMATOCRIT 24.7 % (36-54); HEMOGLOBIN 8.3 g/dL (14.0-18.0); LYMPHOCYTES # (AUTO) 0.3 K/uL (1.0-5.5); LYMPHOCYTES % (AUTO) 4.7 % (20.5-51.5); MEAN CORPUSCULAR HEMOGLOBIN 36 pg (27-31); MEAN CORPUSCULAR HGB CONC 33 % (32-36); MEAN CORPUSCULAR VOLUME 107 fL (79.0-98.0); MONOCYTES # (AUTO) 0.5 K/uL (0.0-1.0); MONOCYTES % (AUTO) 7.8 % (1.7-9.3); NEUTROPHILS # (AUTO) 5.8 K/uL (1.8-7.7); NEUTROPHILS % (AUTO) 84.9 % (40.0-70.0); PLATELET COUNT (AUTO) 133 K/uL (130-430); RED BLOOD CELL COUNT(AUTO) 2.32 MIL/uL (4.2-6.2); WHITE BLOOD COUNT (AUTO) 6.9 K/uL (4.8-10.8)
[2019-03-24 10:01] LABS: CALCIUM 7.9 mg/dL (8.4-11.0); TOTAL BILIRUBIN 0.7 mg/dL (0.0-1.0)
[2019-03-24] MEDS ORDERED: ETOMIDATE 20 MG/ 10 ML VIAL (AMIDATE) IVP ONE (10:24)
[2019-03-24 10:26] LABS: CREATININE 8.81 mg/dL (0.55-1.30)
[2019-03-24] MEDS: LORazepam 2 MG/ML VIAL IVP PRN ×6 (10:55→21:40)
[2019-03-24] MEDS ORDERED: HYDROCORTISONE SOD SUCC 100 MG/2 ML VIAL IVP ONE (11:00)
[2019-03-24] MEDS ORDERED: ALBUMIN HUMAN 25% 200 ML IV ONE (11:30)
[2019-03-24] MEDS: MORPHINE 2 MG/ML INJ. SYRINGE IVP PRN (17:18)
[2019-03-24] MEDS ORDERED: PANTOPRAZOLE SODIUM 40 MG TAB NG SCH (17:30)
[2019-03-24] MEDS ORDERED: LANSOPRAZOLE 30 MG CAPSULE.DR NG ONE (17:45)
[2019-03-24] MEDS: ALBUTEROL SULFATE 0.083% 2.5 MG/3 ML VIAL.NEB INH SCH ×3 (17:52→19:45)
[2019-03-24] MEDS: HYDROCORTISONE SOD SUCC 100 MG/2 ML VIAL IVP SCH (21:34)
[2019-03-25] VITALS (23 sets, daily range): BP systolic 130–174
[2019-03-25] MEDS: ALBUTEROL SULFATE 0.083% 2.5 MG/3 ML VIAL.NEB INH PRN ×2 (00:35→04:05)
[2019-03-25 06:01] LABS: BASOPHILS % (AUTO) 0.4 % (0.0-2.0); LYMPHOCYTES # (AUTO) 0.3 K/uL (1.0-5.5); LYMPHOCYTES % (AUTO) 5.8 % (20.5-51.5); MEAN CORPUSCULAR HEMOGLOBIN 36 pg (27-31); MEAN CORPUSCULAR HGB CONC 34 % (32-36); MEAN CORPUSCULAR VOLUME 106 fL (79.0-98.0); MONOCYTES # (AUTO) 0.4 K/uL (0.0-1.0); MONOCYTES % (AUTO) 8.9 % (1.7-9.3); NEUTROPHILS # (AUTO) 3.8 K/uL (1.8-7.7); NEUTROPHILS % (AUTO) 84.9 % (40.0-70.0); PLATELET COUNT (AUTO) 110 K/uL (130-430); WHITE BLOOD COUNT (AUTO) 4.4 K/uL (4.8-10.8)
[2019-03-25] MEDS: HYDROCORTISONE SOD SUCC 100 MG/2 ML VIAL IVP SCH (06:22)
[2019-03-25] MEDS: LANSOPRAZOLE 30 MG CAPSULE.DR NG SCH (06:23)
[2019-03-25 07:14] LABS: RED BLOOD CELL COUNT(AUTO) 1.94 MIL/uL (4.2-6.2)
[2019-03-25 07:15] LABS: HEMATOCRIT 20.6 % (36-54)
[2019-03-25 07:22] LABS: ALBUMIN 3.1 g/dL (3.4-4.8); CALCIUM 8.5 mg/dL (8.4-11.0); POTASSIUM 4.3 mmol/L (3.5-5.1); TOTAL BILIRUBIN 0.7 mg/dL (0.0-1.0)
[2019-03-25] MEDS: ALBUTEROL SULFATE 0.083% 2.5 MG/3 ML VIAL.NEB INH SCH ×4 (07:24→19:34)
[2019-03-25 07:52] LABS: CREATININE 8.29 mg/dL (0.55-1.30)
[2019-03-25] MEDS ORDERED: BUDESONIDE 0.5 MG/2 ML AMPUL.NEB INH ONE (08:15)
[2019-03-25] MEDS: MORPHINE 2 MG/ML INJ. SYRINGE IVP PRN (08:18)
[2019-03-25] MEDS: FUROSEMIDE 40 MG TABLET PO SCH (08:24)
[2019-03-25] MEDS: ATORVASTATIN 20 MG TABLET PO SCH (08:24)
[2019-03-25] MEDS: AMIODARONE HCL 200 MG TABLET PO SCH (08:25)
[2019-03-25] MEDS: CARVEDILOL 25 MG TABLET (COREG) PO SCH ×2 (08:26→20:45)
[2019-03-25] MEDS: ISOSORBIDE MONONITRATE 30 MG TAB.ER.24H PO SCH ×2 (08:26→20:44)
[2019-03-25] MEDS: AZITHROMYCIN 250 MG TABLET PO SCH (08:29)
[2019-03-25] MEDS: APIXABAN 2.5 MG TABLET PO SCH ×2 (08:29→20:46)
[2019-03-25] MEDS: amLODIPine BESYLATE 5 MG TABLET PO SCH (08:31)
[2019-03-25] MEDS: HYDROcodone/ACETAMIN 10-325 MG TAB PO PRN ×2 (16:07→20:45)
[2019-03-25] MEDS: BUDESONIDE 0.5 MG/2 ML AMPUL.NEB INH SCH (19:50)
[2019-03-26] VITALS (23 sets, daily range): BP systolic 109–186
[2019-03-26] MEDS: cefTRIAXone 1 GM IVPB PREMIX 50 ML IV SCH ×2 (00:52→23:10)
[2019-03-26] MEDS: HYDROcodone/ACETAMIN 10-325 MG TAB PO PRN ×2 (02:39→20:28)
[2019-03-26] MEDS: LANSOPRAZOLE 30 MG CAPSULE.DR NG SCH (06:29)
[2019-03-26 06:51] LABS: BASOPHILS % (AUTO) 0.9 % (0.0-2.0); EOSINOPHILS # (AUTO) 0.1 K/uL (0.0-0.4); EOSINOPHILS % (AUTO) 1.1 % (0.0-4.0); HEMOGLOBIN 7.4 g/dL (14.0-18.0); LYMPHOCYTES # (AUTO) 0.7 K/uL (1.0-5.5); LYMPHOCYTES % (AUTO) 15.4 % (20.5-51.5); MEAN CORPUSCULAR HEMOGLOBIN 35 pg (27-31); MEAN CORPUSCULAR HGB CONC 34 % (32-36); MEAN CORPUSCULAR VOLUME 104 fL (79.0-98.0); MONOCYTES # (AUTO) 0.4 K/uL (0.0-1.0); MONOCYTES % (AUTO) 9.9 % (1.7-9.3); NEUTROPHILS # (AUTO) 3.3 K/uL (1.8-7.7); NEUTROPHILS % (AUTO) 72.7 % (40.0-70.0); PLATELET COUNT (AUTO) 114 K/uL (130-430); RED BLOOD CELL COUNT(AUTO) 2.12 MIL/uL (4.2-6.2); RED CELL DISTRIBUTION WIDTH 16.8 % (9.0-15.0); WHITE BLOOD COUNT (AUTO) 4.5 K/uL (4.8-10.8)
[2019-03-26 07:09] LABS: CALCIUM 8.3 mg/dL (8.4-11.0); POTASSIUM 4.4 mmol/L (3.5-5.1); TOTAL BILIRUBIN 0.7 mg/dL (0.0-1.0)
[2019-03-26] MEDS: ALBUTEROL SULFATE 0.083% 2.5 MG/3 ML VIAL.NEB INH SCH ×4 (07:11→19:36)
[2019-03-26] MEDS: BUDESONIDE 0.5 MG/2 ML AMPUL.NEB INH SCH ×2 (07:11→19:37)
[2019-03-26 07:20] LABS: CREATININE 10.66 mg/dL (0.55-1.30)
[2019-03-26] MEDS: ATORVASTATIN 20 MG TABLET PO SCH (07:30)
[2019-03-26] MEDS: APIXABAN 2.5 MG TABLET PO SCH ×2 (10:23→20:29)
[2019-03-26] MEDS: FUROSEMIDE 40 MG TABLET PO SCH (10:25)
[2019-03-26] MEDS: AZITHROMYCIN 250 MG TABLET PO SCH (10:25)
[2019-03-26] MEDS: ISOSORBIDE MONONITRATE 30 MG TAB.ER.24H PO SCH ×2 (10:25→20:27)
[2019-03-26] MEDS: AMIODARONE HCL 200 MG TABLET PO SCH (10:26)
[2019-03-26] MEDS: CARVEDILOL 25 MG TABLET (COREG) PO SCH ×2 (10:26→20:29)
[2019-03-26] MEDS: amLODIPine BESYLATE 5 MG TABLET PO SCH (10:28)
[2019-03-26] MEDS ORDERED: DILTIAZEM HCL 25 MG/5 ML VIAL IVP ONE (15:45)
[2019-03-26] MEDS ORDERED: DILTIAZEM HCL 25 MG/5 ML VIAL IVP PRN (16:00)
[2019-03-26] MEDS: guaiFENesin 200 MG/CODEINE 20 MG/ 10 ML UDC PO PRN (23:10)
[2019-03-27] VITALS (15 sets, daily range): BP systolic 116–145
[2019-03-27] MEDS: HYDROcodone/ACETAMIN 10-325 MG TAB PO PRN (02:27)
[2019-03-27] MEDS: guaiFENesin 200 MG/CODEINE 20 MG/ 10 ML UDC PO PRN (04:12)
[2019-03-27] MEDS: LANSOPRAZOLE 30 MG CAPSULE.DR NG SCH (06:14)
[2019-03-27 06:18] LABS: BASOPHILS % (AUTO) 0.8 % (0.0-2.0); EOSINOPHILS % (AUTO) 1.1 % (0.0-4.0); HEMATOCRIT 24.9 % (36-54); HEMOGLOBIN 8.5 g/dL (14.0-18.0); LYMPHOCYTES # (AUTO) 0.6 K/uL (1.0-5.5); LYMPHOCYTES % (AUTO) 13.6 % (20.5-51.5); MEAN CORPUSCULAR HEMOGLOBIN 35 pg (27-31); MEAN CORPUSCULAR HGB CONC 34 % (32-36); MEAN CORPUSCULAR VOLUME 102 fL (79.0-98.0); MONOCYTES # (AUTO) 0.5 K/uL (0.0-1.0); MONOCYTES % (AUTO) 12.3 % (1.7-9.3); NEUTROPHILS # (AUTO) 3.2 K/uL (1.8-7.7); NEUTROPHILS % (AUTO) 72.2 % (40.0-70.0); PLATELET COUNT (AUTO) 112 K/uL (130-430); RED BLOOD CELL COUNT(AUTO) 2.44 MIL/uL (4.2-6.2); WHITE BLOOD COUNT (AUTO) 4.4 K/uL (4.8-10.8)
[2019-03-27 06:45] LABS: POTASSIUM 3.9 mmol/L (3.5-5.1)
[2019-03-27 06:55] LABS: CREATININE 8.6 mg/dL (0.55-1.30)
[2019-03-27] MEDS: BUDESONIDE 0.5 MG/2 ML AMPUL.NEB INH SCH ×2 (07:04→20:22)
[2019-03-27] MEDS: ALBUTEROL SULFATE 0.083% 2.5 MG/3 ML VIAL.NEB INH SCH ×4 (07:05→20:22)
[2019-03-27] MEDS: AZITHROMYCIN 250 MG TABLET PO SCH (09:02)
[2019-03-27] MEDS: CARVEDILOL 25 MG TABLET (COREG) PO SCH ×2 (09:02→21:09)
[2019-03-27] MEDS: ISOSORBIDE MONONITRATE 30 MG TAB.ER.24H PO SCH ×2 (09:03→21:08)
[2019-03-27] MEDS: FUROSEMIDE 40 MG TABLET PO SCH (09:03)
[2019-03-27] MEDS: AMIODARONE HCL 200 MG TABLET PO SCH (09:04)
[2019-03-27] MEDS: ATORVASTATIN 20 MG TABLET PO SCH (09:05)
[2019-03-27] MEDS: APIXABAN 2.5 MG TABLET PO SCH ×2 (09:05→21:07)
[2019-03-27] MEDS: amLODIPine BESYLATE 5 MG TABLET PO SCH (09:06)
[2019-03-27] MEDS ORDERED: PREDNISONE 20 MG TABLET PO ONE (10:45)
[2019-03-27] MEDS: PREDNISONE 20 MG TABLET PO SCH (21:08)
[2019-03-28] MEDS: HYDROcodone/ACETAMIN 10-325 MG TAB PO PRN ×2 (00:28→06:28)
[2019-03-28] MEDS: cefTRIAXone 1 GM IVPB PREMIX 50 ML IV SCH (00:28)
[2019-03-28 00:55] VITALS: BP_SYST 136
[2019-03-28] MEDS: LANSOPRAZOLE 30 MG CAPSULE.DR NG SCH (06:21)
[2019-03-28] MEDS: BUDESONIDE 0.5 MG/2 ML AMPUL.NEB INH SCH ×2 (07:14→20:12)
[2019-03-28] MEDS: ALBUTEROL SULFATE 0.083% 2.5 MG/3 ML VIAL.NEB INH SCH ×4 (07:14→20:13)
[2019-03-28 07:23] LABS: HEMATOCRIT 25.7 % (36-54); HEMOGLOBIN 8.9 g/dL (14.0-18.0); MEAN CORPUSCULAR HEMOGLOBIN 35 pg (27-31); MEAN CORPUSCULAR HGB CONC 35 % (32-36); MEAN CORPUSCULAR VOLUME 102 fL (79.0-98.0); PLATELET COUNT (AUTO) 106 K/uL (130-430); RED BLOOD CELL COUNT(AUTO) 2.52 MIL/uL (4.2-6.2); RED CELL DISTRIBUTION WIDTH 16.3 % (9.0-15.0)
[2019-03-28 08:26] VITALS: BP_SYST 152
[2019-03-28 10:16] LABS: ATYPICAL LYMPHOCYTES % 0 % (0-0); BAND % (MANUAL) 0 % (0-6); BASOPHILS % (MANUAL) 0 % (0-2); EOSINOPHILS % (MANUAL) 0 % (0-7); LYMPHOCYTES % (MANUAL) 30 % (20-46); MONOCYTES % (MANUAL) 10 % (0-11)
[2019-03-28 11:57] VITALS: BP_SYST 150
[2019-03-28] MEDS: PREDNISONE 20 MG TABLET PO SCH ×2 (12:01→20:49)
[2019-03-28] MEDS: ATORVASTATIN 20 MG TABLET PO SCH (12:02)
[2019-03-28] MEDS: amLODIPine BESYLATE 5 MG TABLET PO SCH (12:04)
[2019-03-28] MEDS: ISOSORBIDE MONONITRATE 30 MG TAB.ER.24H PO SCH ×2 (12:05→20:49)
[2019-03-28] MEDS: AZITHROMYCIN 250 MG TABLET PO SCH (12:05)
[2019-03-28] MEDS: CARVEDILOL 25 MG TABLET (COREG) PO SCH ×2 (12:06→20:48)
[2019-03-28] MEDS: AMIODARONE HCL 200 MG TABLET PO SCH (12:08)
[2019-03-28] MEDS: FUROSEMIDE 40 MG TABLET PO SCH (12:09)
[2019-03-28] MEDS: APIXABAN 2.5 MG TABLET PO SCH ×2 (12:14→20:50)
[2019-03-28 14:32] VITALS: BP_SYST 144
[2019-03-28 16:05] VITALS: BP_SYST 113
[2019-03-28 20:00] VITALS: BP_SYST 140
[2019-03-29] MEDS: cefTRIAXone 1 GM IVPB PREMIX 50 ML IV SCH (00:09)
[2019-03-29 00:45] VITALS: BP_SYST 108
[2019-03-29] MEDS: LANSOPRAZOLE 30 MG CAPSULE.DR NG SCH (06:23)
[2019-03-29] MEDS: ALBUTEROL SULFATE 0.083% 2.5 MG/3 ML VIAL.NEB INH SCH ×3 (07:00→15:00)
[2019-03-29] MEDS: BUDESONIDE 0.5 MG/2 ML AMPUL.NEB INH SCH (07:00)
[2019-03-29 07:30] VITALS: BP_SYST 146
[2019-03-29] MEDS: amLODIPine BESYLATE 5 MG TABLET PO SCH (08:44)
[2019-03-29] MEDS: FUROSEMIDE 40 MG TABLET PO SCH (08:47)
[2019-03-29] MEDS: AMIODARONE HCL 200 MG TABLET PO SCH (08:51)
[2019-03-29] MEDS: CARVEDILOL 25 MG TABLET (COREG) PO SCH (08:54)
[2019-03-29] MEDS: PREDNISONE 20 MG TABLET PO SCH (08:57)
[2019-03-29] MEDS: AZITHROMYCIN 250 MG TABLET PO SCH (09:01)
[2019-03-29] MEDS: ATORVASTATIN 20 MG TABLET PO SCH (09:02)
[2019-03-29] MEDS: ISOSORBIDE MONONITRATE 30 MG TAB.ER.24H PO SCH (09:04)
[2019-03-29] MEDS: APIXABAN 2.5 MG TABLET PO SCH (09:05)
[2019-03-29] MEDS ORDERED: PRED20TA PO (10:11)
[2019-03-29 11:42] VITALS: BP_SYST 145
[2019-03-29 15:59] VITALS: BP_SYST 129
== END 2019-03-29 17:01 | disposition home or self-care (01) | DRG 208 ==
LOC: SED 13:33 → STU 18:56 → SIC 03-24 10:30 → STU 03-27 11:00
PROVIDERS: ADMIT Internal Medicine; ATTEND Internal Medicine Hospice and Palliative Medicine
PROC: 0BH17EZ Insertion of Endotracheal Airway into Trachea, Via Natural or Artificial Opening (ICD-10-PCS; principal; 2019-03-24)
PROC: 5A1935Z Respiratory Ventilation, Less than 24 Consecutive Hours (ICD-10-PCS; 2019-03-24)
PROC: 5A1D70Z Performance of Urinary Filtration, Intermittent, Less than 6 Hours Per Day (ICD-10-PCS; 2019-03-24)
PROC: 30233N1 Transfusion of Nonautologous Red Blood Cells into Peripheral Vein, Percutaneous Approach (ICD-10-PCS; 2019-03-25)
PROC: 5A1D70Z Performance of Urinary Filtration, Intermittent, Less than 6 Hours Per Day (ICD-10-PCS; 2019-03-26)
PROC: 5A1D70Z Performance of Urinary Filtration, Intermittent, Less than 6 Hours Per Day (ICD-10-PCS; 2019-03-28)
DX: J18.9 Pneumonia, unspecified organism (principal); J96.01 Acute respiratory failure with hypoxia; N18.6 End stage renal disease; I50.33 Acute on chronic diastolic (congestive) heart failure; J44.1 Chronic obstructive pulmonary disease with (acute) exacerbation; I13.2 Hypertensive heart and chronic kidney disease with heart failure and with stage 5 chronic kidney disease, or end stage renal disease; J44.0 Chronic obstructive pulmonary disease with (acute) lower respiratory infection; E78.5 Hyperlipidemia, unspecified; E66.01 Morbid (severe) obesity due to excess calories; G47.33 Obstructive sleep apnea (adult) (pediatric); B19.20 Unspecified viral hepatitis C without hepatic coma; D63.1 Anemia in chronic kidney disease; D69.6 Thrombocytopenia, unspecified; I48.91 Unspecified atrial fibrillation; I25.10 Atherosclerotic heart disease of native coronary artery without angina pectoris; M54.5 Low back pain; E87.5 Hyperkalemia; I27.20 Pulmonary hypertension, unspecified; Z79.01 Long term (current) use of anticoagulants; Z82.49 Family history of ischemic heart disease and other diseases of the circulatory system; Z99.2 Dependence on renal dialysis; Z95.1 Presence of aortocoronary bypass graft; I25.2 Old myocardial infarction; Z87.891 Personal history of nicotine dependence; Z79.899 Other long term (current) drug therapy; Z95.5 Presence of coronary angioplasty implant and graft
CPT/HCPCS: 36415; 36600; 71045; 80048; 80053; 82803-TC; 83605; 83880; 85007; 85025; 85027; 86886; 86900; 86901; 86920; 87040-TC; 87070-TC; 87081; 87205-TC; 90935; 90937; 94002; 94003; 94640; 94760; 96365; 96375; 99285; G0378; J0456; J0696; J1720; J2060; J2270; J2405; J2543; J3490; J7030; J7040; J7050; J7060; J7512; J7613; J7620; J7626; P9021; P9046; Q0144

== ENCOUNTER 2019-11-17 18:20 | Emergency (ER) | payer BC ==
[~2019-11-17] VITALS: Ht 180.3 cm; Wt 106.6 kg
[~2019-11-17 18:20] MED LIST changes: -ALBU8.5H8 INH; -ALPR0.25 PO; -AMOX-426 PO; +APIX5TAB PO; -ASPI-1155 PO; -CALC667T6 PO; -CILO100T PO; -FERR-57 PO; -FLUT16SP16 NS; -FLUT1DIS3 INH; +FURO-149 PO; -HYDR-1189 PO; +LIP40 PO; -LIP80 PO; -LOSA50TA3 PO; +PRED20TA PO; -SERT50TA PO; -SODI1POW18 PO; -TICA90TA PO; -TRAZ-219 PO; -[UNRECOGNIZED DRUG - CODE] MC; -medrol pack
[2019-11-17 18:30] VITALS: BP_SYST 133
--- NOTE | 2019-11-17 18:37 | NUR ---
Patient to ER bed 03 to gown for evaluation. Side rails up.
--- NOTE | 2019-11-17 18:45 | NUR ---
Pt came to ER BLE edema, redness, and sores. Pt resting in bed VSS on monitor, no distress noted, awaiting MD.
--- NOTE | 2019-11-17 18:55 | NUR ---
ER at bedside examining patient.
[2019-11-17 19:06] LABS: BASOPHILS % (AUTO) 1.2 % (0.0-2.0); EOSINOPHILS # (AUTO) 0.1 K/uL (0.0-0.4); EOSINOPHILS % (AUTO) 2.2 % (0.0-4.0); HEMATOCRIT 39.4 % (36-54); HEMOGLOBIN 12.6 g/dL (14.0-18.0); LYMPHOCYTES # (AUTO) 0.9 K/uL (1.0-5.5); LYMPHOCYTES % (AUTO) 23.5 % (20.5-51.5); MEAN CORPUSCULAR HEMOGLOBIN 33 pg (27-31); MEAN CORPUSCULAR HGB CONC 32 % (32-36); MEAN CORPUSCULAR VOLUME 104 fL (79.0-98.0); MONOCYTES # (AUTO) 0.4 K/uL (0.0-1.0); MONOCYTES % (AUTO) 10.9 % (1.7-9.3); NEUTROPHILS # (AUTO) 2.4 K/uL (1.8-7.7); NEUTROPHILS % (AUTO) 62.2 % (40.0-70.0); PLATELET COUNT (AUTO) 135 K/uL (130-430); RED BLOOD CELL COUNT(AUTO) 3.79 MIL/uL (4.2-6.2); WHITE BLOOD COUNT (AUTO) 3.8 K/uL (4.8-10.8)
--- NOTE | 2019-11-17 19:10 | NUR ---
Report recieved from MILLY Feliz for continuation of care.
[2019-11-17 19:14] LABS: CALCIUM 9.3 mg/dL (8.4-11.0); CREATININE 4.14 mg/dL (0.55-1.30); POTASSIUM 3.5 mmol/L (3.5-5.1)
[2019-11-17 19:19] LABS: ALBUMIN 3.5 g/dL (3.4-4.8); TOTAL BILIRUBIN 1.4 mg/dL (0.0-1.0)
--- NOTE | 2019-11-17 19:30 | NUR ---
Pt awake and oriented, no complaints. Pt aware awaiting labs. No complaints at this time.
[2019-11-17] MEDS ORDERED: VANCOMYCIN HCL 1,000 MG in NS 250 ML IV ONE (20:00)
--- NOTE | 2019-11-17 20:10 | NUR ---
Pt given vancomycin 1g, requesting pain medication. Rates pain 8/10. Physician notified.
[2019-11-17] MEDS ORDERED: VANCOMYCIN HCL 1000 MG/VIAL IV ONE (20:17)
--- NOTE | 2019-11-17 20:30 | NUR ---
endoscopy tech at bedside.
[2019-11-17] MEDS ORDERED: MORPHINE 4 MG/ML INJ. SYRINGE IM ONE (20:45)
--- NOTE | 2019-11-17 23:05 | NUR ---
Patient does not wish to proceed with medical care recommended by . Patient given information related to possible complications, up to and including , which could occur as a result of leaving hospital at this time. Patient verbalizes understanding of risks involved leaving against medical advice. Patient has signed AMA form.
[2019-11-17 23:24] VITALS: BP_SYST 143
== END 2019-11-17 23:24 | disposition left against medical advice (07) ==
LOC: SED 18:20
DX: L03.115 Cellulitis of right lower limb (principal); L03.116 Cellulitis of left lower limb; I96 Gangrene, not elsewhere classified; J44.9 Chronic obstructive pulmonary disease, unspecified; I10 Essential (primary) hypertension; N28.9 Disorder of kidney and ureter, unspecified; Z86.73 Personal history of transient ischemic attack (TIA), and cerebral infarction without residual deficits; Z79.899 Other long term (current) drug therapy
CPT/HCPCS: 36415; 71045; 80053; 83605; 85025; 87040; 93970; 96365; 96366; 96375; 99285; J2270; J3370

== ENCOUNTER 2019-12-08 23:20 | Emergency (ER) | payer BC ==
[~2019-12-08] VITALS: Ht 177.8 cm; Wt 104.3 kg
[2019-12-08 23:32] VITALS: BP_SYST 138
[2019-12-08] MEDS ORDERED: HYDROcodone/ACETAMIN 5-325 MG TAB (NORCO/ VICODIN) PO ONE (23:45)
[2019-12-09 00:15] LABS: BASOPHILS # (AUTO) 0.1 K/uL (0.0-0.2); EOSINOPHILS # (AUTO) 0.1 K/uL (0.0-0.4); LYMPHOCYTES # (AUTO) 0.8 K/uL (1.0-5.5); MEAN CORPUSCULAR HGB CONC 32 % (32-36); MONOCYTES # (AUTO) 0.4 K/uL (0.0-1.0); NEUTROPHILS # (AUTO) 3.3 K/uL (1.8-7.7); NEUTROPHILS % (AUTO) 70.2 % (40.0-70.0); WHITE BLOOD COUNT (AUTO) 4.7 K/uL (4.8-10.8)
[2019-12-09 00:19] LABS: CALCIUM 8.8 mg/dL (8.4-11.0); CREATININE 4.36 mg/dL (0.55-1.30); POTASSIUM 3.9 mmol/L (3.5-5.1)
[2019-12-09 00:21] LABS: BASOPHILS % (AUTO) 2.7 % (0.0-2.0); HEMATOCRIT 36.4 % (36-54); HEMOGLOBIN 11.6 g/dL (14.0-18.0); LYMPHOCYTES % (AUTO) 16.3 % (20.5-51.5); MEAN CORPUSCULAR HEMOGLOBIN 33 pg (27-31); MEAN CORPUSCULAR VOLUME 102 fL (79.0-98.0); MONOCYTES % (AUTO) 8.8 % (1.7-9.3); PLATELET COUNT (AUTO) 131 K/uL (130-430); RED BLOOD CELL COUNT(AUTO) 3.56 MIL/uL (4.2-6.2); RED CELL DISTRIBUTION WIDTH 17.8 % (9.0-15.0)
[2019-12-09 00:25] LABS: ALBUMIN 3.2 g/dL (3.4-4.8); TOTAL BILIRUBIN 1.6 mg/dL (0.0-1.0)
[2019-12-09 01:00] VITALS: BP_SYST 138
== END 2019-12-09 01:00 | disposition home or self-care (01) ==
LOC: SED 23:20
DX: I73.9 Peripheral vascular disease, unspecified (principal); M79.661 Pain in right lower leg; M79.662 Pain in left lower leg; I12.0 Hypertensive chronic kidney disease with stage 5 chronic kidney disease or end stage renal disease; N18.6 End stage renal disease; J44.9 Chronic obstructive pulmonary disease, unspecified; Z99.2 Dependence on renal dialysis; Z79.899 Other long term (current) drug therapy
CPT/HCPCS: 36415; 80053; 83605; 85025; 87040-TC; 99283